=== PATIENT | female | born 1985 | race Caucasian/White ===

== ENCOUNTER 2018-03-24 16:29 | Emergency (ER) | payer MEDICAID, SELFPAY ==
[2018-03-24 16:30] VITALS: BP 106/75; PULSE 128; RESP 20; TEMP 36.3; O2SAT 98; BMI 23.4
--- NOTE | 2018-03-24 16:43 | ED.DCSUM_ITS ---
- ER Visit Summary Date of Service: 03/24/18 Chief Complaint: Left lower dental pain History of Present Illness: The patient is a 32 F who presents with left lower dental pain that started yesterday. She states her tooth chipped. She denies fever, chills night sweats. She denies any antibiotic allergies. She denies difficulty opening and closing her mouth. She denies change in voice or difficulty swallowing. She has no history rheumatic fever, murmur, SBE, IV drug use or being immune suppressed. She denies any facial swelling or pain. She denies any redness to her skin. Physical Examination: Vital signs are remarkable for heart rate of 128. She is afebrile. Head is atraumatic normal cephalic. Pupils equal round reactive. Extra muscles are intact. Sclerae anicteric. Conjunctive is not injected. Is patent. Posterior pharynx without erythema x-ray. Uvula midline. Patient has numerous dental caries. The first, second third left lower molars have caries involving both the enamel and dentin. There is no swelling of the jaw. There is no submandibular or superior anterior cervical lymphadenopathy. Trachea is midline. There is no evidence of Adolfo's angina. There is no stridor with agitation neck. Insert cardiopulmonary exam Test Results: None are indicated Emergency Department Course and Treatment: Patient received first dose of penicillin and Naprosyn in the department and was discharged with prescription for both. She was instructed to follow-up with her dentist Dr. Jimenez. Treatment Plan: Prescription for pen VK and Naprosyn and outpatient follow-up with her dentist Disposition: Discharged home Impression: 1. Dental pain secondary to numerous cavities involving the first, second and third left lower molars with involvement of the enamel and dentin. This note was generated with [employer] dictation software. It may contain incorrect words, spelling, and punctuation that were not noted in review of the chart prior to signing ED Disposition - Plan for ED Patient: Disposition: Home or Assisted Living Chief Complaint: Dental Instructions: ED Tooth Pain, ED Cavity Dental Prescriptions: Naproxen [Naprosyn] 500 mg PO BID #14 tab Penicillin V Potassium 500 mg PO 4X/DAY #40 tab Referrals: Care Physician,No Primary [Primary Care Provider] - Dentist,Your [STAFF PHYSICIAN] - 5-7 Days
[2018-03-24] MEDS: Naproxen 250 MG Tablet 500 MG PO (16:49)
[2018-03-24] MEDS: Penicillin Vk 250 MG Tablet 500 MG PO (16:50)
== END 2018-03-24 16:53 | disposition home or self-care (01) ==
LOC: ED 16:49
PROVIDERS: Emergency Provider Emergency Medicine
DX: K02.9 Dental caries, unspecified (principal); K08.89 Other specified disorders of teeth and supporting structures; K05.10 Chronic gingivitis, plaque induced
CPT/HCPCS: 99281

== ENCOUNTER 2018-06-30 12:41 | Emergency (ER) | payer MEDICAID, SELFPAY ==
[2018-06-30 12:42] VITALS: BP 134/64; PULSE 121; RESP 16; TEMP 37.1; O2SAT 98; BMI 22.6
--- NOTE | 2018-06-30 13:24 | ED.DCSUM_ITS ---
- ER Visit Summary Date of Service: 06/30/18 Chief Complaint: [] Left upper dental pain for days History of Present Illness: The patient is a 32 F [] that complaint for days no fever no cough she has a history of dental cavities she is scheduled to see a dentist soon no other complaints no mouth swelling or trouble swallowing or breathing Physical Examination: [] She is in no distress points to the basically the third molar left upper complaining of pain here there appears to be cavity here also second molar there appears to be a filling that may have fallen out she has no gingival gumline swelling the floor the mouth is clear her speech is easy to understand no stridor or drooling the neck is supple the rest of exams unremarkable Test Results: [] Emergency Department Course and Treatment: [] She will be started on Pen-Vee K Motrin which she is able to take and to follow-up with her family doctors and dentists for further management Treatment Plan: [] Disposition: [] Home stable Impression: [] Dental cavity causing pain This note was generated with [employer] dictation software. It may contain incorrect words, spelling, and punctuation that were not noted in review of the chart prior to signing ED Disposition - Plan for ED Patient: Chief Complaint: Dental Referrals: Care Physician,No Primary [Primary Care Provider] -
--- NOTE | 2018-06-30 13:24 | ED.DEP ---
ED Disposition - Plan for ED Patient: Chief Complaint: Dental Instructions: ED Cavity Dental Prescriptions: Ibuprofen [Motrin] 600 mg PO TID PRN #20 tab Penicillin V Potassium 500 mg PO 4X/DAY #40 tab Referrals: Care Physician,No Primary [Primary Care Provider] -
== END 2018-06-30 13:45 | disposition home or self-care (01) ==
PROVIDERS: Emergency Provider Emergency Medicine
DX: K02.9 Dental caries, unspecified (principal); K08.89 Other specified disorders of teeth and supporting structures
CPT/HCPCS: 99281

== ENCOUNTER 2018-12-19 22:13 | Inpatient (IN) | payer MEDICAID, SELFPAY ==
[2018-12-19 22:14] VITALS: BP 106/68; PULSE 110; RESP 16; TEMP 36.7; O2SAT 99; BMI 15.3
[2018-12-19] MEDS: 0.9% Normal Saline 1,000 ML 1000 ML IV (22:55)
[2018-12-19 22:56] LABS: Red Blood Cells-Urine 0 SEEN /hpf (0-5)
[2018-12-19 23:01] LABS: Absolute Lymphocyte Count 1.56 X10^3/ul (0.83-4.51); Absolute Neutrophil Count 2.5 X10^3/uL (2.0-7.7); Basophil# 0.12 X10^3/uL; Basophil% 2.3 % (0-1); Eosinophil# 0.06 X10^3/uL; Eosinophils% 1.2 % (0-5); Hematocrit 46.3 % (37-47); Hemoglobin 14.9 g/dl (12.0-15.0); Lymphocyte # 1.56 X10^3/ul (4.0); Lymphocyte % 30.4 % (19-41); Mean Corp Hgb Conc 32.2 g/gl (32-36); Mean Corpuscular Hgb 28.1 pg (27.0-32.0); Mean Corpuscular Volume 87.2 fL (81-99); Mean Platelet Vol. 10.1 fl (6.2-12.0); Monocyte# 0.87 X10^3/uL; Neutrophil # 2.51 X10^3/uL (2.7-7.7); Neutrophil % 48.9 % (47-70); Platelet Count 220 K/mm3 (150-450); RBC Distribution Width CV 14.6 % (11.6-14.6); RBC Distribution Width SD 46.4 fl (35.1-43.9); Red Blood Count 5.31 M/mm3 (4.2-5.4); White Blood Count 5.1 K/mm3 (4.4-11.0)
[2018-12-19 23:03] LABS: Differential Indicated SCAN CRITERIA MET; POSITIVE COUNT NO; POSITIVE DIFFERENTIAL NO; POSITIVE MORPHOLOGY YES
[2018-12-19 23:11] LABS: Color, Urine Amber (Yellow); Glucose, Dipstick Normal (Normal); Ketone-Dipstick 5 mg/dl (Negative); Leukocyte Esterase-Dipstick 100 /ul (Negative); Nitrite-Dipstick Positive (Negative); Occult Blood-Urine 250 /ul (Negative); Protein-Dipstick 30 mg/dl (Negative); Specific Gravity, Urine 1.025 (1.002-1.030); Urine Clarity Sl. Cloudy (Clear); Urine Urobilinogen 8 mg/dl (Normal)
[2018-12-19 23:11] LABS: International Normalized Ratio 1.2; Prothrombin Time (Protime)PT. 14.7 SECONDS (11.7-14.9)
[2018-12-19 23:17] LABS: Urine Bilirubin Dipstick 6 mg/dL (Negative)
[2018-12-19 23:18] LABS: Anisocytosis RARE; Platelet Estimate ADEQUATE (ADEQ)
[2018-12-19 23:18] LABS: Squamous Epithelial Cells - UA 0-5 SEEN /hpf (5-10); White Blood Cells 5-10 SEEN /hpf (0-5)
[2018-12-19 23:19] LABS: Bacteria RARE /hpf (None Seen); Mucous, Urine 2+ /hpf (<or=2+)
[2018-12-19 23:24] LABS: Pregnancy, Serum, hCG Quali. NEGATIVE Negative (0-9 Nonpreg)
[2018-12-19 23:45] LABS: AST(SGOT) 2535 U/L (15-37); Alanine Aminotransfer ALT/SGPT 2796 U/L (13-56); Albumin, Serum 3.2 g/dL (3.2-5.0); Alkaline Phosphatase 218 U/L (45-117); Anion Gap 9 (5-15); BUN 11 mg/dL (7-18); BUN/Creat Ratio 14.5 RATIO (10-20); Bilirubin, Direct 7.79 mg/dL (0.00-0.30); Calcium,Total 8.3 mg/dL (8.5-10.1); Chloride 103 mmol/L (98-107); Creatinine, Serum 0.76 mg/dL (0.55-1.02); EST Glomerular Filtration Rate 93 mL/min (>60); Est Glom Filt Rate - Afr Amer 113 mL/min (>60); Estimated Creatinine Clearance 71.62 ml/min; Globulin 3.8 g/dL (2.2-4.2); Glucose 77 mg/dL (74-106); Lipase 173 U/L (73-393); Potassium 3.7 mmol/L (3.5-5.1); Sodium Level 138 mmol/L (136-145)
[2018-12-20] VITALS (20 sets, daily range): BP systolic 95–111; BP diastolic 60–81; PULSE 69–99; RESP 12–21; TEMP 36.3–36.9; O2SAT 96–100; BMI 20.2
--- NOTE | 2018-12-20 01:25 | ED.VISSUMM ---
- ER Visit Summary Date of Service: 12/20/18 Chief Complaint: Jaundice History of Present Illness: The patient is a 33 F with no primary care physician. She reports that she has not felt well for the past 5 days. She has had a poor appetite and has been fatigued. She also complains of generalized weakness. She reports that she has jaundice that began today. She denies any abdominal pain. She has had nausea without vomiting. No diarrhea. Her last bout was 2 days ago. Typically she goes every other day. She denies any solomon colored stools. She does report that she had dysuria and dark urine for the past 2 days. She is on her menstrual period now. Review of systems: General: No fever, chills, cold sweats. Cardiovascular: No chest pain, palpitations. Respiratory: No cough, shortness of breath, dyspnea on exertion. Gastrointestinal: No abdominal pain, nausea, diarrhea, melena, or hematochezia. Neuro: No headache, numbness. Physical Examination: Vitals: Stable. Afebrile. General: Well-nourished and well-developed. Head: Normocephalic atraumatic. Scleral icterus. Neck: Supple, no lymphadenopathy. No JVD. Nontender. Cardiovascular: Regular rate and rhythm. No murmurs. Respiratory: No respiratory distress. Clear to auscultation bilaterally. Abdominal: Soft, nontender, nondistended, normal bowel sounds. No guarding, rebound, or peritoneal signs. Back: Nontender. Extremities: Nontender, no edema. Skin: Jaundiced. Neurologic: Alert and oriented ?3. Cranial nerves II through XII are intact. Normal strength and sensation. Psych: Normal affect. Test Results: CBC is remarkable for monocytes of 17 basophils of 2. Chem-7 is remarkable for a calcium of 8.3. LFTs show a total bili of 9.7 with a direct bili of 7.79. Alk phos is 218. ALT is 2796. AST is 2535. Lipase is normal. INR is 1.2. UA shows leukocytes, nitrites, blood, ketones, 5-10 white blood cells and rare bacteria. test is negative. Clinical Impression(s) from Imaging Studies Abdomen/Pelvis CT 12/20/18 22:41 IMPRESSION: 1. The gallbladder is contracted, nonspecific. Suggest follow-up gallbladder ultrasound, preferably fasting exam. 2. The liver appears normal and no biliary dilatation or pancreatic ductal dilatation identified. 3. Small free fluid within the posterior cul-de-sac. 4. Prominent constipation. Individualized dose optimization techniques were used for this CT. at 0202 Reported and signed by: Claude Rangel MD Electronically Signed: Claude Rangel, at 2:01 EST Tel , Service support , Emergency Department Course and Treatment: Patient was given a liter of normal saline. She refused pain or nausea medications. She was given Rocephin IV. She is resting comfortably. Treatment Plan: The patient was discussed with Dr. Lynch. She will be admitted to the hospital for further evaluation and treatment. Disposition: Admitted in stable condition. Impression: 1. Painless jaundice. This note was generated with [employer] dictation software. It may contain incorrect words, spelling, and punctuation that were not noted in review of the chart prior to signing ED Disposition - Plan for ED Patient: Chief Complaint: General Illness Referrals: Care Physician,No Primary [Primary Care Provider] -
--- NOTE | 2018-12-20 01:28 | ED.DCSUM_ITS ---
- ER Visit Summary Date of Service: 12/20/18 Chief Complaint: Jaundice History of Present Illness: The patient is a 33 F with no primary care physician. She reports that she has not felt well for the past 5 days. She has had a poor appetite and has been fatigued. She also complains of generalized weakness. She reports that she has jaundice that began today. She denies any abdominal pain. She has had nausea without vomiting. No diarrhea. Her last bout was 2 days ago. Typically she goes every other day. She denies any solomon colored stools. She does report that she had dysuria and dark urine for the past 2 days. She is on her menstrual period now. Review of systems: General: No fever, chills, cold sweats. Cardiovascular: No chest pain, palpitations. Respiratory: No cough, shortness of breath, dyspnea on exertion. Gastrointestinal: No abdominal pain, nausea, diarrhea, melena, or hematochezia. Neuro: No headache, numbness. Physical Examination: Vitals: Stable. Afebrile. General: Well-nourished and well-developed. Head: Normocephalic atraumatic. Scleral icterus. Neck: Supple, no lymphadenopathy. No JVD. Nontender. Cardiovascular: Regular rate and rhythm. No murmurs. Respiratory: No respiratory distress. Clear to auscultation bilaterally. Abdominal: Soft, nontender, nondistended, normal bowel sounds. No guarding, rebound, or peritoneal signs. Back: Nontender. Extremities: Nontender, no edema. Skin: Jaundiced. Neurologic: Alert and oriented ?3. Cranial nerves II through XII are intact. Normal strength and sensation. Psych: Normal affect. Test Results: CBC is remarkable for monocytes of 17 basophils of 2. Chem-7 is remarkable for a calcium of 8.3. LFTs show a total bili of 9.7 with a direct bili of 7.79. Alk phos is 218. ALT is 2796. AST is 2535. Lipase is normal. INR is 1.2. UA shows leukocytes, nitrites, blood, ketones, 5-10 white blood cells and rare bacteria. test is negative. Clinical Impression(s) from Imaging Studies Abdomen/Pelvis CT 12/20/18 22:41 IMPRESSION: 1. The gallbladder is contracted, nonspecific. Suggest follow-up gallbladder ultrasound, preferably fasting exam. 2. The liver appears normal and no biliary dilatation or pancreatic ductal dilatation identified. 3. Small free fluid within the posterior cul-de-sac. 4. Prominent constipation. Individualized dose optimization techniques were used for this CT. at 0202 Reported and signed by: Claude Rangel MD Electronically Signed: Claude Rangel, at 2:01 EST Tel , Service support , Emergency Department Course and Treatment: Patient was given a liter of normal saline. She refused pain or nausea medications. She was given Rocephin IV. She is resting comfortably. Treatment Plan: The patient was discussed with Dr. Lynch. She will be admitted to the hospital for further evaluation and treatment. Disposition: Admitted in stable condition. Impression: 1. Painless jaundice. This note was generated with [employer] dictation software. It may contain incorrect words, spelling, and punctuation that were not noted in review of the chart prior to signing ED Disposition - Plan for ED Patient: Chief Complaint: General Illness Referrals: Care Physician,No Primary [Primary Care Provider] -
[2018-12-20] MEDS: Ceftriaxone 1 GM/50 ML BAG IV (02:12)
--- NOTE | 2018-12-20 03:01 | PCM.HP.STD ---
Problem List (1) Acute liver injury Status: Acute (2) History of fentanyl use Status: Chronic (3) History of alcohol use Status: Chronic History of Present Illness Date of Admission: 12/20/18 Chief Complaint: Platelets jaundice The patient is a 33 year old F with no significant medical history except alcohol use and snorting fentanyl about 2 years ago came to ER for not feeling well since December 09. She denies fever or chills but she has been sleeping more, lethargy as per the patient and her mother near the bedside. She also feels nauseated, loss of appetite but denies vomiting and diarrhea. Her last bowel movement was about 2 days ago and is normally every other day. She also has dysuria and turbid urine for last 2 days. She denies as she is on menstrual period. Denies abdominal pain. [] She denies any recent or past history of liver disease. In the ER, CT abdomen shows gallbladder contracted with liver appearing normal and no biliary or pancreatic ductal dilatation. Basic lab work in ED shows total bili of 9.7, direct bilirubin 7.79, ALT 2796, AST 2535, alkaline phosphatase 218, albumin 3.2, INR normal 1.2. UA is positive of WBC 5-10 cells, LE 100, nitrite positive, bacteria rare. The patient denies recent Tylenol or drug overdose or salicylate but in her home medication listed Tylenol. She also said she takes gabapentin for hand paresthesia although dose unclear. Past Medical History Past Medical History (Chronic Problems): Chronic Problems History of fentanyl use (Chronic) History of alcohol use (Chronic) Allergies No Known Allergies Allergy (Verified 12/19/18 22:18) Home Medications: Ambulatory Orders Medication Instructions Recorded Acetaminophen [Tylenol] 325 mg PO PRN 12/19/18 Smoking Status: Current every day smoker - *Family History Paternal History Items: - - History of liver cancer 1 diabetes mellitus Review of Systems Constitutional: Reports: Anorexia, Weakness, Fatigue. Denies: Chills, Fever, Weight Change Eyes: Reports: - - Icterus present HEENT: Denies: Head Aches, Sinus Congestion, Sinus Drainage Cardiovascular: Denies: Chest Pain, Palpitations Respiratory: Denies: Cough, Shortness of breath at rest, Sputum production Gastrointestinal: Reports: Constipation. Denies: Abdominal Pain, Nausea, Vomiting Genitourinary: Denies: Dysuria Musculoskeletal: Denies: Joint Pain, Joint Tenderness Skin: Denies: Rash, Wounds Neurological: Denies: Numbness, Tingling, Focal weakness Psychiatric: Reports: Anxiety. Denies: Depression, Homicidal Ideations, Suicidal Ideations Hematologic/ Lymphatic: Denies: Easy Bruising, Easy Bleeding VTE Information - Inpt Only VTE Present on Admission: No VTE Mechan Device Prophylaxis: SCD's VTE Pharm Prophylaxis ordered?: No Patient Problems: Active and Suspected Problems Acute liver injury (Acute) - Physical Exam General: Alert, Oriented x3, Cooperative, - - More sleepiness at home HEENT: Atraumatic, PERRLA, EOMI, Normocephalic, - - Deep icterus present Oral: Dry Mucosa Neck: Supple, No JVD, Negative Carotid Bruits Lungs: Clear to auscultation, Normal air movement, No rhonchi, No wheeze Cardiovascular: Regular rate, Regular Rhythm, Normal S1, Normal S2, No murmurs Abdomen: Bowel Sounds Present, Soft, Non-Distended, No Hepato-splenomegaly - Liver not enlarged. Liver dullness starts at 6th intercostal space anteriorly., Tender - Tenderness present on deep palpation on right upper quadrant subcostal margin Extremities: No edema, Capillary Refill Less than 3 Seconds Skin: No rashes, No breakdown Musculoskeletal: No Tenderness to Palpation of Joints or Extremities Neurological: Cranial nerves II-XII grossly intact, Deep Tendon Reflexes 2+/4 and Symmetrical, Neuro grossly intact, Motor Exam 5/5 strength throughout, - - No asterixis Psych/Mental Status: Normal Affect, Appropriate Vital Signs Temp Pulse Resp BP Pulse Ox 98.0 F 97 16 96/67 99 12/19/18 22:14 12/20/18 02:21 12/20/18 02:21 12/20/18 02:21 12/20/18 02:21 Oxygen Delivery Method Room Air Weight: 95 lb Body Mass Index (BMI) 15.3 Laboratory Tests Past 24 Hrs 12/19/18 12/19/18 12/19/18 22:45 22:45 22:45 WBC 5.1 RBC 5.31 Hgb 14.9 Hct 46.3 MCV 87.2 MCH 28.1 MCHC 32.2 RDW 14.6 RDW Differential 46.4 H Plt Count 220 MPV 10.1 Immature Gran % (Auto) 0.200 Neut % (Auto) 48.9 Lymph % (Auto) 30.4 [place] % (Auto) 17.0 H Eos % (Auto) 1.2 Baso % (Auto) 2.3 H Absolute Neuts (auto) 2.5 Absolute Lymphs (auto) 1.56 Total Counted Not Reportable Diff Path Review May foll Platelet Estimate ADEQUATE Anisocytosis RARE PT 14.7 INR 1.2 Sodium 138 Potassium 3.7 Chloride 103 Carbon Dioxide 26.0 Anion Gap 9 BUN 11 Creatinine 0.76 Estim Creat Clear Calc 71.62 Est GFR (MDRD) Af Amer 113 Est GFR (MDRD) Non-Af 93 BUN/Creatinine Ratio 14.5 Glucose 77 Calcium 8.3 L Total Bilirubin 9.70 H Direct Bilirubin 7.79 H AST 2535 H ALT 2796 H Alkaline Phosphatase 218 H Total Protein 7.0 Albumin 3.2 Globulin 3.8 Lipase 173 Serum , Qual Urine Color Urine Clarity Urine pH Ur Specific [place] Urine Protein Urine Glucose (UA) Urine Ketones Urine Occult Blood Urine Nitrite Urine Bilirubin Urine Urobilinogen Ur Leukocyte Esterase Urine RBC Urine WBC Ur Squamous Epith Cells Urine Bacteria Urine Mucus Hepatitis A IgM Ab Hep Bs Antigen Hep B Core IgM Ab Hepatitis C Ab (EIA) 12/19/18 12/19/18 12/20/18 22:45 22:55 01:25 WBC RBC Hgb Hct MCV MCH MCHC RDW RDW Differential Plt Count MPV Immature Gran % (Auto) Neut % (Auto) Lymph % (Auto) [place] % (Auto) Eos % (Auto) Baso % (Auto) Absolute Neuts (auto) Absolute Lymphs (auto) Total Counted Diff Path Review Platelet Estimate Anisocytosis PT INR Sodium Potassium Chloride Carbon Dioxide Anion Gap BUN Creatinine Estim Creat Clear Calc Est GFR (MDRD) Af Amer Est GFR (MDRD) Non-Af BUN/Creatinine Ratio Glucose Calcium Total Bilirubin Direct Bilirubin AST ALT Alkaline Phosphatase Total Protein Albumin Globulin Lipase Serum , Qual NEGATIVE Urine Color Sissy Urine Clarity Sl. Cloudy Urine pH 5.0 Ur Specific [place] 1.025 Urine Protein 30 H Urine Glucose (UA) Normal Urine Ketones 5 H Urine Occult Blood 250 H Urine Nitrite Positive H Urine Bilirubin 6 H Urine Urobilinogen 8 H Ur Leukocyte Esterase 100 H Urine RBC 0 SEEN Urine WBC 5-10 SEEN Ur Squamous Epith Cells 0-5 SEEN Urine Bacteria RARE Urine Mucus 2+ Hepatitis A IgM Ab Pending Hep Bs Antigen Pending Hep B Core IgM Ab Pending Hepatitis C Ab (EIA) Pending Assessment/Plan All Active Problems Acute liver injury (Acute) The patient is a 33 year old F with no significant medical history except alcohol use and snorting fentanyl about 2 years ago came to ER for not feeling well since December 09. She denies fever or chills but she has been sleeping more, lethargy as per the patient and her mother near the bedside. She also feels nauseated, loss of appetite but denies vomiting and diarrhea. Her last bowel movement was about 2 days ago and is normally every other day. She also has dysuria and turbid urine for last 2 days. She denies as she is on menstrual period. Denies abdominal pain. [] She denies any recent or past history of liver disease. In the ER, CT abdomen shows gallbladder contracted with liver appearing normal and no biliary or pancreatic ductal dilatation. Basic lab work in ED shows total bili of 9.7, direct bilirubin 7.79, ALT 2796, AST 2535, alkaline phosphatase 218, albumin 3.2, INR normal 1.2. UA is positive of WBC 5-10 cells, LE 100, nitrite positive, bacteria rare. The patient denies recent Tylenol or drug overdose or salicylate but in her home medication listed Tylenol. She also said she takes gabapentin for hand paresthesia although dose unclear. 1. Acute liver injury, etiology unclear suspect Tylenol/drug overdose: Patient is being admitted in ICU for N-acetylcysteine drip. Discussed with the pharmacist, and started drip as per Tylenol overdose. Monitor CMP, CBC tomorrow a.m. and daily. Right upper quadrant sonogram tomorrow a.m. in fasting state. Avoid hepatotoxic medications. Serum Tylenol and salicylate ordered. U tox, serum alcohol and GGT ordered. Hepatitis panel has already been ordered. HSV and Monospot test ordered. As mentioned above, CT abdomen does not show surgical/obstructive jaundice but follow-up right upper quadrant sonogram. 2. Increased sleepiness suggestive of possible hepatic encephalopathy without coma: Serum ammonia ordered. Lactulose 20 g 3 times daily as the patient might have hepatic encephalopathy. 3. UTI: On IV Rocephin 1 g daily. Urine culture ordered. DVT prophylaxis: Bilateral SCDs Laboratory Results 12/19/18 22:45: WBC 5.1, RBC 5.31, Hgb 14.9, Hct 46.3, MCV 87.2, MCH 28.1, MCHC 32.2, RDW 14.6, RDW Differential 46.4 H, Plt Count 220, MPV 10.1, Immature Gran % (Auto) 0.200, Neut % (Auto) 48.9, Lymph % (Auto) 30.4, [place] % (Auto) 17.0 H, Eos % (Auto) 1.2, Baso % (Auto) 2.3 H, Absolute Neuts (auto) 2.5, Absolute Lymphs (auto) 1.56, Total Counted Not Reportable, Diff Path Review March, Platelet Estimate ADEQUATE, Anisocytosis RARE 12/19/18 22:45: PT 14.7, INR 1.2 12/19/18 22:45: Sodium 138, Potassium 3.7, Chloride 103, Carbon Dioxide 26.0, Anion Gap 9, BUN 11, Creatinine 0.76, Estim Creat Clear Calc 71.62, Est GFR (MDRD) Af Amer 113, Est GFR (MDRD) Non-Af 93, BUN/Creatinine Ratio 14.5, Glucose 77, Calcium 8.3 L, Total Bilirubin 9.70 H, Direct Bilirubin 7.79 H, AST 2535 H, ALT 2796 H, Alkaline Phosphatase 218 H, Total Protein 7.0, Albumin 3.2, Globulin 3.8, Lipase 173 12/19/18 22:45: Serum , Qual NEGATIVE 12/19/18 22:55: Urine Color Sissy, Urine Clarity Sl. Cloudy, Urine pH 5.0, Ur Specific [place] 1.025, Urine Protein 30 H, Urine Glucose (UA) Normal, Urine Ketones 5 H, Urine Occult Blood 250 H, Urine Nitrite Positive H, Urine Bilirubin 6 H, Urine Urobilinogen 8 H, Ur Leukocyte Esterase 100 H, Urine RBC 0 SEEN, Urine WBC 5-10 SEEN, Ur Squamous Epith Cells 0-5 SEEN, Urine Bacteria RARE, Urine Mucus 2+ 12/20/18 01:25: Hepatitis A IgM Ab Pending, Hep Bs Antigen Pending, Hep B Core IgM Ab Pending, Hepatitis C Ab (EIA) Pending Clinical Impression(s) from Imaging Studies Abdomen/Pelvis CT 12/20/18 22:41 IMPRESSION: 1. The gallbladder is contracted, nonspecific. Suggest follow-up gallbladder ultrasound, preferably fasting exam. 2. The liver appears normal and no biliary dilatation or pancreatic ductal dilatation identified. 3. Small free fluid within the posterior cul-de-sac. 4. Prominent constipation. Individualized dose optimization techniques were used for this CT. Code Visit Inpatient E&M: 54213 Init Hosp L3
[2018-12-20 04:34] LABS: Absolute Lymphocyte Count 1.59 X10^3/ul (0.83-4.51); Absolute Neutrophil Count 2.4 X10^3/uL (2.0-7.7); Basophil# 0.08 X10^3/uL; Basophil% 1.5 % (0-1); Eosinophil# 0.06 X10^3/uL; Eosinophils% 1.1 % (0-5); Hematocrit 38.7 % (37-47); Hemoglobin 12.2 g/dl (12.0-15.0); Lymphocyte # 1.59 X10^3/ul (4.0); Lymphocyte % 29.7 % (19-41); Mean Corp Hgb Conc 31.5 g/gl (32-36); Mean Corpuscular Hgb 27.7 pg (27.0-32.0); Mean Corpuscular Volume 87.8 fL (81-99); Mean Platelet Vol. 9.7 fl (6.2-12.0); Monocyte# 1.17 X10^3/uL; Monocyte% 21.9 % (0-10); Neutrophil # 2.44 X10^3/uL (2.7-7.7); Neutrophil % 45.6 % (47-70); Platelet Count 201 K/mm3 (150-450); RBC Distribution Width CV 14.6 % (11.6-14.6); RBC Distribution Width SD 47.3 fl (35.1-43.9); Red Blood Count 4.41 M/mm3 (4.2-5.4); White Blood Count 5.4 K/mm3 (4.4-11.0)
[2018-12-20] MEDS: 0.9% Normal Saline 1,000 ML 150 ML IV ×3 (04:36→23:05)
[2018-12-20 04:38] LABS: GGTP 134 U/L (5-55)
[2018-12-20 04:41] LABS: Internal QC Validated? YES +Cl - CLEAR BKGD; Monotest Negative (Negative)
[2018-12-20 04:55] LABS: ALB/GLOB Ratio 0.9 RATIO (0.9-2.4); AST(SGOT) 2095 U/L (15-37); Alanine Aminotransfer ALT/SGPT 2380 U/L (13-56); Albumin, Serum 2.8 g/dL (3.2-5.0); Alkaline Phosphatase 182 U/L (45-117); Anion Gap 8 (5-15); BUN 8 mg/dL (7-18); BUN/Creat Ratio 10.6 RATIO (10-20); Calcium,Total 7.9 mg/dL (8.5-10.1); Chloride 105 mmol/L (98-107); Creatinine, Serum 0.76 mg/dL (0.55-1.02); EST Glomerular Filtration Rate 94 mL/min (>60); Est Glom Filt Rate - Afr Amer 113 mL/min (>60); Estimated Creatinine Clearance 77.62 ml/min; Globulin 3.1 g/dL (2.2-4.2); Glucose 80 mg/dL (74-106); Potassium 3.7 mmol/L (3.5-5.1); Protein, Total 5.9 g/dL (6.4-8.2); Sodium Level 140 mmol/L (136-145)
[2018-12-20] MEDS: Ondansetron 4 MG/2 ML Vial IV (05:06)
[2018-12-20] MEDS: 0.9% NaCl Peripheral Flush Adult/Peds IV (05:06)
[2018-12-20 05:13] LABS: Salicylate < 1.7 mg/dL (2.8-20.0)
[2018-12-20 05:28] LABS: Differential Indicated SCAN CRITERIA MET; POSITIVE COUNT NO; POSITIVE DIFFERENTIAL NO; POSITIVE MORPHOLOGY YES
[2018-12-20 05:35] LABS: Differential Comment SCANNED
--- NOTE | 2018-12-20 05:55 | US_ITS ---
STUDY: ABDOMINAL ULTRASOUND - RIGHT UPPER QUADRANT REASON FOR VISIT: Female, 33 years old. Elevated liver function tests. Jaundice. TECHNIQUE: Ultrasound evaluation of the right upper quadrant was performed with real-time and static mueller-scale imaging. TECHNICAL QUALITY: Limited. Examination limited due to obesity. COMPARISON: Comparison is made with prior CT scan the abdomen and pelvis dated December 20, 2018 at 12:40 AM. FINDINGS: Liver: The liver measures 12.8 cm. There is normal echogenicity of the liver. The bile ducts are within normal limits. There is hepatic color flow. The direction of portal flow is hepatopetal. There is no demonstrated mass lesion. Gallbladder: There is a contracted gallbladder. The gallbladder wall measures 3.4 mm. There is a negative sonographic Henry's sign. There is trace pericholecystic fluid. There are no gallstones. Common Bile Duct (C.B.D.): The common bile duct measures 1.7 mm. Pancreas: Normal size of the head, body and tail of the pancreas. There is normal echogenicity of the pancreas. There is no demonstrated pancreatic mass or cyst. Right Kidney: Normal size of the right kidney. The right kidney measures 10.8 cm x 5.9 cm x 5.1 cm. Normal renal cortex. The right cortex measures 1.9 cm. There is no demonstrated renal mass or cyst. There is no right hydronephrosis. US/Abdomen Limited IMPRESSION: Contracted slightly thickened gallbladder. Trace amount of pericholecystic fluid. Electronically Signed: Forest Gallegos MD at 10:36 EST , Service support ,
[2018-12-20 06:04] LABS: Amphetamine Urine VISTA NEGATIVE (<1000 ng/mL); Barbiturate Urine VISTA NEGATIVE (< 200 ng/mL); Benzodiazepine Urine VISTA NEGATIVE (< 200 ng/mL); Cocaine Urine VISTA NEGATIVE (< 300 ng/mL); Ecstacy Urine VISTA NEGATIVE (< 500 ng/mL); Methadone Urine VISTA NEGATIVE (< 300 ng/mL); PCP Urine VISTA NEGATIVE (< 25 ng/mL); THC Urine VISTA POSITIVE (< 50 ng/mL); Vista UDS pH Range 6
[2018-12-20 06:33] LABS: Acetaminophen (Tylenol) Level < 2.0 ug/mL (10.0-30.0)
--- NOTE | 2018-12-20 07:04 | CON.PCM_ITS ---
Problem List (1) Acute liver injury Status: Acute (2) History of fentanyl use Status: Chronic (3) History of alcohol use Status: Chronic Reason for Consult Date of Consultation: 12/20/18 Reason for Consultation: Acute liver injury History of Present Illness: The patient is a 33 year old F, with past medical history listed below, who presented to [facility] on 12/20/2018 secondary to jaundice. Patient reportedly had not felt well over the last 5 days with poor appetite and fatigue. Patient also reported generalized weakness and had noted on the day of presentation the development of jaundice. This did not have any associated abdominal pain, but patient did report some nausea, without vomiting or diarrhea. Patient reports her stool has been hard, but otherwise appeared normal. Patient has noted some dark urine over the last couple days. Patient is currently on her menstrual period. Patient does report that she took 400 mg of gabapentin the day prior to presentation. Patient did report using Tylenol as needed for pain, but denied any excessive use or intentional overdose. Patient denies any recent undercooked seafood. In the emergency room, patient was hemodynamically stable on room air. CBC showed monocytes of 17 and a total bilirubin of 9.7, primarily direct. Alk phos, GGT, ALT and AST were all elevated. CT of the abdomen showed a contracted gallbladder without cirrhosis or biliary/pancreatic ductal dilation. Patient was then admitted to the intensive care unit for further monitoring. Patient was started on N acetylcysteine by drip. Patient has had some nausea that was treated with Zofran. This morning, patient feels subjectively improved compared to previous. Patient has remained hemodynamically stable on room air. Patient does report a dull achy sensation in the right upper quadrant that is not worse with deep inhalation. Patient does report it has been a couple days since her last bowel movement. This is not atypical for her. Patient denied any recent dysuria, but does report she is currently menstruating. Review of systems otherwise negative x10 systems. Past Medical History Past Medical History (Chronic Problems): Chronic Problems History of fentanyl use (Chronic) History of alcohol use (Chronic) Allergies No Known Allergies Allergy (Verified 12/19/18 22:18) Home Medications: Ambulatory Orders Medication Instructions Recorded Acetaminophen [Tylenol] 325 mg PO PRN 12/19/18 Smoking Status: Former smoker - *Family History Paternal History Items: - - History of liver cancer 1 diabetes mellitus Review of Systems Comment: See HPI, otherwise negative x10 systems. Patient Problems: Active and Suspected Problems Acute liver injury (Acute) Objective: CT of the abdomen showed a questionable gallbladder and constipation. - Physical Exam General: Alert, Oriented x3, Cooperative, No apparent distress, - - Jaundice appreciated. Appears stated age. Speaking in full sentences. HEENT: Atraumatic, PERRLA, EOMI, Normocephalic, - - Icterus noted. Oral: Moist Mucosa, No Gingival or Mucosal Lesions/ Ulcerations, - - Lip ring is clean, dry and intact. Neck: Supple, No JVD, No Nodes, Trachea Midline Lungs: Clear to auscultation, Normal air movement, No rhonchi, No wheeze, No rales Cardiovascular: Regular rate, Regular Rhythm, Normal S1, Normal S2, No murmurs, No rub noted, No Gallop Abdomen: Bowel Sounds Present, Soft, Non-Distended, Tender - Described as achy sensation and localized to the right upper quadrant Extremities: No clubbing, No cyanosis, No edema, Capillary Refill Less than 3 Seconds Skin: No rashes, No breakdown Musculoskeletal: No Tenderness to Palpation of Joints or Extremities Lymphatic: No Cervical, Supraclavicular, or Inguinal Adenopathy Neurological: Cranial nerves II-XII grossly intact, Neuro grossly intact, Motor Exam 5/5 strength throughout Psych/Mental Status: Alert and oriented to time, place, person, mood and affect Vital Signs Temp Pulse Resp BP Pulse Ox 36.3 C L 95 20 H 109/73 96 12/20/18 03:46 12/20/18 06:00 12/20/18 06:00 12/20/18 06:00 12/20/18 06:00 Oxygen Delivery Method Room Air Weight: 46.7 kg Body Mass Index (BMI) 20.2 Intake and Output for Last 24 Hours 12/18/18 12/19/18 12/20/18 23:59 23:59 23:59 Intake Total 599.5 / 599.5 Output Total 550 / 550 Balance 49.5 / 49.5 Laboratory Tests Past 24 Hrs 12/19/18 12/19/18 12/19/18 22:45 22:45 22:45 WBC 5.1 RBC 5.31 Hgb 14.9 Hct 46.3 MCV 87.2 MCH 28.1 MCHC 32.2 RDW 14.6 RDW Differential 46.4 H Plt Count 220 MPV 10.1 Immature Gran % (Auto) 0.200 Neut % (Auto) 48.9 Lymph % (Auto) 30.4 [place] % (Auto) 17.0 H Eos % (Auto) 1.2 Baso % (Auto) 2.3 H Absolute Neuts (auto) 2.5 Absolute Lymphs (auto) 1.56 Total Counted Not Reportable Differential Comment Diff Path Review May foll Platelet Estimate ADEQUATE Anisocytosis RARE PT 14.7 INR 1.2 Sodium 138 Potassium 3.7 Chloride 103 Carbon Dioxide 26.0 Anion Gap 9 BUN 11 Creatinine 0.76 Estim Creat Clear Calc 71.62 Est GFR (MDRD) Af Amer 113 Est GFR (MDRD) Non-Af 93 BUN/Creatinine Ratio 14.5 Glucose 77 Calcium 8.3 L Total Bilirubin 9.70 H Direct Bilirubin 7.79 H GGT AST 2535 H ALT 2796 H Alkaline Phosphatase 218 H Ammonia Total Protein 7.0 Albumin 3.2 Globulin 3.8 Albumin/Globulin Ratio Lipase 173 Serum , Qual Urine Color Urine Clarity Urine pH Ur Specific [place] Urine Protein Urine Glucose (UA) Urine Ketones Urine Occult Blood Urine Nitrite Urine Bilirubin Urine Urobilinogen Ur Leukocyte Esterase Urine RBC Urine WBC Ur Squamous Epith Cells Urine Bacteria Urine Mucus Salicylates Urine Opiates Screen Urine Methadone Screen Acetaminophen Ur Barbiturates Screen Ur Phencyclidine Scrn Ur Amphetamines Screen U Methamphetamin-MDMA U Benzodiazepines Scrn Urine Cocaine Screen U Cannabinoids Screen Ur Drug Screen Comment Ethyl Alcohol [place] Screen DIONI-1 Antibody SS-A/Ro IgG Antibody SS-B/La IgG Antibody Sm (Amado) Antibody SYRUP [employer]OOK Antibody Scl-70 Scleroderma Ab Double Strand DNA Ab Centromere B Antibody Anti-Mitochondrial Ab Anti-Smooth Muscle Ab Hepatitis A IgM Ab Hep Bs Antigen Hep B Core IgM Ab Hepatitis C Ab (EIA) HSV I DNA PCR HSV II DNA PCR Monoscreen 12/19/18 12/19/18 12/20/18 22:45 22:55 01:25 WBC RBC Hgb Hct MCV MCH MCHC RDW RDW Differential Plt Count MPV Immature Gran % (Auto) Neut % (Auto) Lymph % (Auto) [place] % (Auto) Eos % (Auto) Baso % (Auto) Absolute Neuts (auto) Absolute Lymphs (auto) Total Counted Differential Comment Diff Path Review Platelet Estimate Anisocytosis PT INR Sodium Potassium Chloride Carbon Dioxide Anion Gap BUN Creatinine Estim Creat Clear Calc Est GFR (MDRD) Af Amer Est GFR (MDRD) Non-Af BUN/Creatinine Ratio Glucose Calcium Total Bilirubin Direct Bilirubin GGT AST ALT Alkaline Phosphatase Ammonia Total Protein Albumin Globulin Albumin/Globulin Ratio Lipase Serum , Qual NEGATIVE Urine Color Sissy Urine Clarity Sl. Cloudy Urine pH 5.0 Ur Specific [place] 1.025 Urine Protein 30 H Urine Glucose (UA) Normal Urine Ketones 5 H Urine Occult Blood 250 H Urine Nitrite Positive H Urine Bilirubin 6 H Urine Urobilinogen 8 H Ur Leukocyte Esterase 100 H Urine RBC 0 SEEN Urine WBC 5-10 SEEN Ur Squamous Epith Cells 0-5 SEEN Urine Bacteria RARE Urine Mucus 2+ Salicylates Urine Opiates Screen Urine Methadone Screen Acetaminophen Ur Barbiturates Screen Ur Phencyclidine Scrn Ur Amphetamines Screen U Methamphetamin-MDMA U Benzodiazepines Scrn Urine Cocaine Screen U Cannabinoids Screen Ur Drug Screen Comment Ethyl Alcohol [place] Screen DIONI-1 Antibody SS-A/Ro IgG Antibody SS-B/La IgG Antibody Sm (Amado) Antibody SYRUP [employer] Antibody Scl-70 Scleroderma Ab Double Strand DNA Ab Centromere B Antibody Anti-Mitochondrial Ab Anti-Smooth Muscle Ab Hepatitis A IgM Ab Pending Hep Bs Antigen Pending Hep B Core IgM Ab Pending Hepatitis C Ab (EIA) Pending HSV I DNA PCR HSV II DNA PCR Monoscreen 12/20/18 12/20/18 12/20/18 03:45 03:45 03:45 WBC RBC Hgb Hct MCV MCH MCHC RDW RDW Differential Plt Count MPV Immature Gran % (Auto) Neut % (Auto) Lymph % (Auto) [place] % (Auto) Eos % (Auto) Baso % (Auto) Absolute Neuts (auto) Absolute Lymphs (auto) Total Counted Differential Comment Diff Path Review Platelet Estimate Anisocytosis PT INR Sodium Potassium Chloride Carbon Dioxide Anion Gap BUN Creatinine Estim Creat Clear Calc Est GFR (MDRD) Af Amer Est GFR (MDRD) Non-Af BUN/Creatinine Ratio Glucose Calcium Total Bilirubin Direct Bilirubin GGT 134 H AST ALT Alkaline Phosphatase Ammonia Total Protein Albumin Globulin Albumin/Globulin Ratio Lipase Serum , Qual Urine Color Urine Clarity Urine pH Ur Specific [place] Urine Protein Urine Glucose (UA) Urine Ketones Urine Occult Blood Urine Nitrite Urine Bilirubin Urine Urobilinogen Ur Leukocyte Esterase Urine RBC Urine WBC Ur Squamous Epith Cells Urine Bacteria Urine Mucus Salicylates Urine Opiates Screen Urine Methadone Screen Acetaminophen < 2.0 L Ur Barbiturates Screen Ur Phencyclidine Scrn Ur Amphetamines Screen U Methamphetamin-MDMA U Benzodiazepines Scrn Urine Cocaine Screen U Cannabinoids Screen Ur Drug Screen Comment Ethyl Alcohol 4.0 [place] Screen DIONI-1 Antibody SS-A/Ro IgG Antibody SS-B/La IgG Antibody Sm (Amado) Antibody SYRUP [employer] Antibody Scl-70 Scleroderma Ab Double Strand DNA Ab Centromere B Antibody Anti-Mitochondrial Ab Anti-Smooth Muscle Ab Hepatitis A IgM Ab Hep Bs Antigen Hep B Core IgM Ab Hepatitis C Ab (EIA) HSV I DNA PCR HSV II DNA PCR Monoscreen 12/20/18 12/20/18 12/20/18 03:45 03:45 03:45 WBC RBC Hgb Hct MCV MCH MCHC RDW RDW Differential Plt Count MPV Immature Gran % (Auto) Neut % (Auto) Lymph % (Auto) [place] % (Auto) Eos % (Auto) Baso % (Auto) Absolute Neuts (auto) Absolute Lymphs (auto) Total Counted Differential Comment Diff Path Review Platelet Estimate Anisocytosis PT INR Sodium Potassium Chloride Carbon Dioxide Anion Gap BUN Creatinine Estim Creat Clear Calc Est GFR (MDRD) Af Amer Est GFR (MDRD) Non-Af BUN/Creatinine Ratio Glucose Calcium Total Bilirubin Direct Bilirubin GGT AST ALT Alkaline Phosphatase Ammonia 22.0 Total Protein Albumin Globulin Albumin/Globulin Ratio Lipase Serum , Qual Urine Color Urine Clarity Urine pH Ur Specific [place] Urine Protein Urine Glucose (UA) Urine Ketones Urine Occult Blood Urine Nitrite Urine Bilirubin Urine Urobilinogen Ur Leukocyte Esterase Urine RBC Urine WBC Ur Squamous Epith Cells Urine Bacteria Urine Mucus Salicylates < 1.7 L Urine Opiates Screen Urine Methadone Screen Acetaminophen Ur Barbiturates Screen Ur Phencyclidine Scrn Ur Amphetamines Screen U Methamphetamin-MDMA U Benzodiazepines Scrn Urine Cocaine Screen U Cannabinoids Screen Ur Drug Screen Comment Ethyl Alcohol [place] Screen DIONI-1 Antibody SS-A/Ro IgG Antibody SS-B/La IgG Antibody Sm (Amado) Antibody SYR[employer] Antibody Scl-70 Scleroderma Ab Double Strand DNA Ab Centromere B Antibody Anti-Mitochondrial Ab Anti-Smooth Muscle Ab Hepatitis A IgM Ab Hep Bs Antigen Hep B Core IgM Ab Hepatitis C Ab (EIA) HSV I DNA PCR HSV II DNA PCR Monoscreen Negative 12/20/18 12/20/18 12/20/18 03:45 03:45 03:45 WBC 5.4 RBC 4.41 Hgb 12.2 Hct 38.7 MCV 87.8 MCH 27.7 MCHC 31.5 L RDW 14.6 RDW Differential 47.3 H Plt Count 201 MPV 9.7 Immature Gran % (Auto) 0.200 Neut % (Auto) 45.6 L Lymph % (Auto) 29.7 [place] % (Auto) 21.9 H Eos % (Auto) 1.1 Baso % (Auto) 1.5 H Absolute Neuts (auto) 2.4 Absolute Lymphs (auto) 1.59 Total Counted Not Reportable Differential Comment SCANNED Diff Path Review Platelet Estimate Anisocytosis PT INR Sodium 140 Potassium 3.7 Chloride 105 Carbon Dioxide 27.0 Anion Gap 8 BUN 8 Creatinine 0.76 Estim Creat Clear Calc 77.62 Est GFR (MDRD) Af Amer 113 Est GFR (MDRD) Non-Af 94 BUN/Creatinine Ratio 10.6 Glucose 80 Calcium 7.9 L Total Bilirubin 8.40 H Direct Bilirubin GGT AST 2095 H ALT 2380 H Alkaline Phosphatase 182 H Ammonia Total Protein 5.9 L Albumin 2.8 L Globulin 3.1 Albumin/Globulin Ratio 0.9 Lipase Serum , Qual Urine Color Urine Clarity Urine pH Ur Specific [place] Urine Protein Urine Glucose (UA) Urine Ketones Urine Occult Blood Urine Nitrite Urine Bilirubin Urine Urobilinogen Ur Leukocyte Esterase Urine RBC Urine WBC Ur Squamous Epith Cells Urine Bacteria Urine Mucus Salicylates Urine Opiates Screen Urine Methadone Screen Acetaminophen Ur Barbiturates Screen Ur Phencyclidine Scrn Ur Amphetamines Screen U Methamphetamin-MDMA U Benzodiazepines Scrn Urine Cocaine Screen U Cannabinoids Screen Ur Drug Screen Comment Ethyl Alcohol [place] Screen DIONI-1 Antibody SS-A/Ro IgG Antibody SS-B/La IgG Antibody Sm (Amado) Antibody S[employer] Antibody Scl-70 Scleroderma Ab Double Strand DNA Ab Centromere B Antibody Anti-Mitochondrial Ab Anti-Smooth Muscle Ab Hepatitis A IgM Ab Hep Bs Antigen Hep B Core IgM Ab Hepatitis C Ab (EIA) HSV I DNA PCR Pending HSV II DNA PCR Pending Monoscreen 12/20/18 12/20/18 12/20/18 05:40 06:33 06:33 WBC RBC Hgb Hct MCV MCH MCHC RDW RDW Differential Plt Count MPV Immature Gran % (Auto) Neut % (Auto) Lymph % (Auto) [place] % (Auto) Eos % (Auto) Baso % (Auto) Absolute Neuts (auto) Absolute Lymphs (auto) Total Counted Differential Comment Diff Path Review Platelet Estimate Anisocytosis PT INR Sodium Potassium Chloride Carbon Dioxide Anion Gap BUN Creatinine Estim Creat Clear Calc Est GFR (MDRD) Af Amer Est GFR (MDRD) Non-Af BUN/Creatinine Ratio Glucose Calcium Total Bilirubin Direct Bilirubin GGT AST ALT Alkaline Phosphatase Ammonia Total Protein Albumin Globulin Albumin/Globulin Ratio Lipase Serum , Qual Urine Color Urine Clarity Urine pH Ur Specific [place] Urine Protein Urine Glucose (UA) Urine Ketones Urine Occult Blood Urine Nitrite Urine Bilirubin Urine Urobilinogen Ur Leukocyte Esterase Urine RBC Urine WBC Ur Squamous Epith Cells Urine Bacteria Urine Mucus Salicylates Urine Opiates Screen NEGATIVE Urine Methadone Screen NEGATIVE Acetaminophen Ur Barbiturates Screen NEGATIVE Ur Phencyclidine Scrn NEGATIVE Ur Amphetamines Screen NEGATIVE U Methamphetamin-MDMA NEGATIVE U Benzodiazepines Scrn NEGATIVE Urine Cocaine Screen NEGATIVE U Cannabinoids Screen POSITIVE H Ur Drug Screen Comment Ethyl Alcohol [place] Screen Pending DIONI-1 Antibody Pending SS-A/Ro IgG Antibody Pending SS-B/La IgG Antibody Pending Sm (Amado) Antibody Pending SYRUP [employer] Antibody Pending Scl-70 Scleroderma Ab Pending Double Strand DNA Ab Pending Centromere B Antibody Pending Anti-Mitochondrial Ab Pending Anti-Smooth Muscle Ab Pending Hepatitis A IgM Ab Hep Bs Antigen Hep B Core IgM Ab Hepatitis C Ab (EIA) HSV I DNA PCR HSV II DNA PCR Monoscreen Clinical Impression(s) from Imaging Studies Abdomen/Pelvis CT 12/20/18 22:41 IMPRESSION: 1. The gallbladder is contracted, nonspecific. Suggest follow-up gallbladder ultrasound, preferably fasting exam. 2. The liver appears normal and no biliary dilatation or pancreatic ductal dilatation identified. 3. Small free fluid within the posterior cul-de-sac. 4. Prominent constipation. Individualized dose optimization techniques were used for this CT. at 0202 Reported and signed by: Claude Rangel MD Electronically Signed: Claude Rangel, at 2:01 EST Tel , Service support , Assessment/Plan Active and Suspected Problems Acute liver injury (Acute) RECOMMENDATIONS: 1. Likely okay to discontinue N acetylcysteine after current bag 2. Await hepatitis labs 3. Await right upper quadrant ultrasound 4. Okay to discontinue lactulose 5. Possible transfer from the intensive care unit later today IMPRESSIONS: 1. Acute liver injury Unclear etiology at this time. Tylenol level is less than 2. Patient is denying any acute ingestions such as mushrooms, undercooked seafood or illicit drugs. Patient does have an arbitrary dose of 400 mg of gabapentin. Patient appears to be responding to therapy appropriately. Likely okay to discontinue NAC therapy. Will await right upper quadrant ultrasound, but no dilation was noted of the ducts to suggest a gallstone. Patient does not have a physical exam consistent with a gallstone. Will hold off on surgery evaluation for now. Patient appears to be alert and oriented at this time. No indication for lactulose. 2. Possible UTI Urinalysis is consistent with possible UTI. Patient is currently menstruating, which does alter the results. Await the cultures. Reasonable to continue Rocephin for now until cultures are available. Code Visit Inpatient E&M: 49278 Init Hosp L2
[2018-12-20] MEDS: Pantoprazole Sodium 40 MG Tablet PO (09:48)
[2018-12-20] MEDS: Senna/Docusate Sodium 1 Tablet 2 TABLET PO (09:48)
[2018-12-20] MEDS: Cefazolin 1 GM/50 ML BAG IV ×2 (13:19→23:05)
--- NOTE | 2018-12-20 22:41 | CT_ITS ---
HISTORY: JAUNDICE UNKNOWN ORIGIN,ELEVATED LFT'S,DECREASED APPETITE,FATIGUE TECHNIQUE: Helically acquired images were obtained of the abdomen and pelvis following IV contrast. A radiation dose optimization technique was used for this scan. IV Contrast dosage and agent: 100 cc [id number] contrast Oral contrast: yes COMPARISON: None FINDINGS: Lower thorax: Clear. No pleural effusion. History of jaundice and evaluation of the liver is partly limited secondary to single phase CT technique. The gallbladder is contracted and no apparent gallstones are seen. The liver is normal in size and shows homogenous attenuation. No evidence of cirrhosis. The portal and hepatic veins appear patent. Portal vein is upper normal in diameter measuring 13 mm in diameter. The pancreas appears normal. No pancreatic ductal dilatation. Normal spleen. No free fluid within the upper abdomen. Bilateral renal excretion of contrast without evidence of hydronephrosis, pyelonephritis, or renal mass lesion. Adrenal glands are not enlarged. Abdominal aorta and IVC appear normal. No retroperitoneal lymphadenopathy. GI tract: Prominent constipation. The appendix is poorly seen. No pericecal or pericolonic inflammatory changes. Pelvis: Anteverted uterus. Small free fluid within the posterior cul-de-sac. 3 mm benign-appearing calcification of the urinary bladder dome, posteriorly versus adjacent uterine serosal calcification. Bilateral tubal ligation clips. Bones: No acute osseous abnormality. CT/Abdomen/Pelvis WITH Contrast IMPRESSION: 1. The gallbladder is contracted, nonspecific. Suggest follow-up gallbladder ultrasound, preferably fasting exam. 2. The liver appears normal and no biliary dilatation or pancreatic ductal dilatation identified. 3. Small free fluid within the posterior cul-de-sac. 4. Prominent constipation. Individualized dose optimization techniques were used for this CT. at 0202 Reported and signed by: Claude Rangel MD Electronically Signed: Claude Rangel, at 2:01 EST Tel , Service support ,
[2018-12-21 02:00] VITALS: BP 98/62; PULSE 87; RESP 16; TEMP 36.7; O2SAT 97
[2018-12-21 05:07] LABS: Hepatitis A IgM Antibody Negative (Negative)
[2018-12-21] MEDS: Cefazolin 1 GM/50 ML BAG IV ×3 (06:56→21:50)
[2018-12-21] MEDS: 0.9% Normal Saline 1,000 ML 150 ML IV (06:57)
[2018-12-21 07:21] VITALS: O2SAT 97
[2018-12-21 07:43] LABS: ALB/GLOB Ratio 0.8 RATIO (0.9-2.4); AST(SGOT) 1939 U/L (15-37); Alanine Aminotransfer ALT/SGPT 1883 U/L (13-56); Albumin, Serum 2.2 g/dL (3.2-5.0); Alkaline Phosphatase 137 U/L (45-117); Anion Gap 9 (5-15); BUN 4 mg/dL (7-18); BUN/Creat Ratio 6.9 RATIO (10-20); Calcium,Total 7.6 mg/dL (8.5-10.1); Chloride 113 mmol/L (98-107); Creatinine, Serum 0.58 mg/dL (0.55-1.02); EST Glomerular Filtration Rate 128 mL/min (>60); Est Glom Filt Rate - Afr Amer 155 mL/min (>60); Estimated Creatinine Clearance 101.71 ml/min; Globulin 2.6 g/dL (2.2-4.2); Glucose 83 mg/dL (74-106); Potassium 3.8 mmol/L (3.5-5.1); Protein, Total 4.8 g/dL (6.4-8.2); Sodium Level 143 mmol/L (136-145)
--- NOTE | 2018-12-21 08:31 | PCM.PROGNOTE ---
Patient Problems: Active and Suspected Problems Acute liver injury (Acute) Subjective: Patient did okay overnight. No acute issues were reported. Patient has remained hemodynamically stable. Patient reports mild subjective improvement in overall condition, but overall feels continued fatigue. Patient is not reporting any dysuria. - Physical Exam General: Alert, Oriented x3, Cooperative, No apparent distress, - - Appears stated age. Speaking in full sentences. HEENT: Atraumatic, PERRLA, EOMI, Normocephalic, - - Improved scleral icterus Oral: Moist Mucosa, No Gingival or Mucosal Lesions/ Ulcerations Neck: Supple, No JVD, No Nodes, Trachea Midline Lungs: Clear to auscultation, Normal air movement, No rhonchi, No wheeze, No rales Cardiovascular: Regular rate, Regular Rhythm, Normal S1, Normal S2, No murmurs, No rub noted, No Gallop Abdomen: Bowel Sounds Present, Soft, Non Tender, Non-Distended Extremities: No clubbing, No cyanosis, No edema Skin: No rashes, No breakdown Musculoskeletal: No Tenderness to Palpation of Joints or Extremities Lymphatic: No Cervical, Supraclavicular, or Inguinal Adenopathy Neurological: Cranial nerves II-XII grossly intact, Neuro grossly intact, Motor Exam 5/5 strength throughout Psych/Mental Status: Alert and oriented to time, place, person, mood and affect Vital Signs Temp Pulse Resp BP Pulse Ox 36.7 C 87 16 98/62 97 12/21/18 02:00 12/21/18 02:00 12/21/18 02:00 12/21/18 02:00 12/21/18 07:21 Oxygen Delivery Method Room Air Weight: 46.7 kg Body Mass Index (BMI) 20.2 Intake and Output for Last 24 Hours 12/19/18 12/20/18 12/21/18 23:59 23:59 23:59 Intake Total 2662.5 / 2662.5 2327 / 2327 Output Total 1750 / 1750 400 / 400 Balance 912.5 / 912.5 1927 / 192 Laboratory Tests Past 24 Hrs 12/21/18 06:06 Sodium 143 Potassium 3.8 Chloride 113 H Carbon Dioxide 21.0 Anion Gap 9 BUN 4 L Creatinine 0.58 Estim Creat Clear Calc 101.71 Est GFR (MDRD) Af Amer 155 Est GFR (MDRD) Non-Af 128 BUN/Creatinine Ratio 6.9 L Glucose 83 Calcium 7.6 L Total Bilirubin 7.40 H AST 1939 H ALT 1883 H Alkaline Phosphatase 137 H Total Protein 4.8 L Albumin 2.2 L Globulin 2.6 Albumin/Globulin Ratio 0.8 L Clinical Impression(s) from Imaging Studies Abdomen Ultrasound 12/20/18 05:55 IMPRESSION: Contracted slightly thickened gallbladder. Trace amount of pericholecystic fluid. Electronically Signed: Forest Gallegos MD at 10:36 EST , Service support , Medical Necessity - Tobacco Use Smoking Status: Former smoker Assessment/Plan All Active Problems Acute liver injury (Acute) RECOMMENDATIONS: 1. Continue supportive management 2. Hemodynamically stable on room air. Will sign off from a critical care perspective 3. Consider bowel regimen IMPRESSIONS: 1. Acute liver injury Unclear etiology at this time. Patient continues to improve with symptomatic supportive management. Immunologic workup is still pending, but laboratory results show improvement. Defer to hospitalist to follow-up. Low clinical suspicion for progression of fulminant liver failure. Will sign off from a critical care perspective. 2. Gram-negative UTI Patient does have growth of a gram-negative in the urine with greater than 100,000 CFU per mL. Patient is on empiric therapy at this time. No signs or symptoms of severe sepsis at this time. Code Visit Inpatient E&M: 41605 Subs Hosp L2
[2018-12-21] MEDS: Senna/Docusate Sodium 1 Tablet 2 TABLET PO (10:29)
[2018-12-21] MEDS: Pantoprazole Sodium 40 MG Tablet PO (10:29)
[2018-12-21] MEDS: Ibuprofen 600 MG Tablet PO ×2 (10:30→21:49)
[2018-12-21 10:31] VITALS: BP 103/66; PULSE 72; RESP 16; TEMP 36.6; O2SAT 97
--- NOTE | 2018-12-21 11:25 | CASEMGMT ---
MEY REGAN Face to Face with patient for initial transition planning/care coordination assessment. RN CM introduced self and role at [facility]. Patient lying in bed, alert and oriented. Patient willing to participate in assessment and is able to answer all questions appropriately. Care providers, pharmacy, and demographics verified. Patient wishes to discharge home, denies need for home health at this time. Patient states she has no further needs or concerns at this time. Referral made to for past drug use. CM to follow for discharge planning needs that may arise. PCP: None, list of PCPs given Specialists: None Preferred Pharmacy: [facility] Insurance: [employer] Prescription Benefit: yes Living Will/HPOA: None LNOK: father Living Arrangements: Patient states she lives with a family, is independent at home. Transportation: Self/friend DME/HHC: None, denies needs. Disposition Plan: Patient to discharge home with family support and follow-up plans in place. Mary Ann LARSON, RN, CM
--- NOTE | 2018-12-21 11:44 | PCM.PROGNOTE ---
<Jeffery Gross - Last Filed: 12/21/18 11:44> Patient Problems: Active and Suspected Problems Acute liver injury (Acute) Subjective: Pt resting comfortably in bed NAD. She currently complains only of a headache. No abdominal pain, nausea, vomiting. Prior to admission she did complain of dysuria, however this has completely resolved. She has no fevers or chills. She denies intravenous drug use ever in her life. She is sexually active. She did use fentanyl in the past, she states she only ever snorted it, again reiterating that she has never injected. She denies prior hx of hepatitis. - Physical Exam General: Alert, Oriented x3, Cooperative HEENT: Atraumatic, PERRLA, EOMI, Normocephalic Neck: Supple, No JVD, Negative Carotid Bruits Lungs: Clear to auscultation, Normal air movement Cardiovascular: Regular rate, No murmurs Abdomen: Bowel Sounds Present, Soft, Non Tender Extremities: No edema, Capillary Refill Less than 3 Seconds Skin: No rashes, No breakdown Musculoskeletal: No Tenderness to Palpation of Joints or Extremities Neurological: Cranial nerves II-XII grossly intact Psych/Mental Status: Normal Affect, Appropriate Vital Signs Temp Pulse Resp BP Pulse Ox 97.8 F 72 16 103/66 97 12/21/18 10:31 12/21/18 10:31 12/21/18 10:31 12/21/18 10:31 12/21/18 10:31 Oxygen Delivery Method Room Air Weight: 102 lb 15.294 oz Body Mass Index (BMI) 20.2 Intake and Output for Last 24 Hours 12/19/18 12/20/18 12/21/18 23:59 23:59 23:59 Intake Total 2662.5 / 2662.5 2327 / 2327 Output Total 1750 / 1750 400 / 400 Balance 912.5 / 912.5 1927 / 1927 Microbiology Past 72 Hours 12/20/18 05:40 Urine Culture - Preliminary Urine, Clean Catch GNR lactose electronic device repairer Laboratory Tests Past 24 Hrs 12/21/18 06:06 Sodium 143 Potassium 3.8 Chloride 113 H Carbon Dioxide 21.0 Anion Gap 9 BUN 4 L Creatinine 0.58 Estim Creat Clear Calc 101.71 Est GFR (MDRD) Af Amer 155 Est GFR (MDRD) Non-Af 128 BUN/Creatinine Ratio 6.9 L Glucose 83 Calcium 7.6 L Total Bilirubin 7.40 H AST 1939 H ALT 1883 H Alkaline Phosphatase 137 H Total Protein 4.8 L Albumin 2.2 L Globulin 2.6 Albumin/Globulin Ratio 0.8 L Medical Necessity - Tobacco Use Smoking Status: Former smoker Assessment/Plan All Active Problems Acute liver injury (Acute) 1. Acute liver injury - unclear etiology. rheumatoid pane pending, Hepatitis panel pending, HIV pending. Will cut back IV fluids - she states they are making her face swell although I do not appreciate any edema on exam. test negative. [place] test negative. No hx IV drug use per pt. Tylenol levels negative. Drug screen shows cannabinoids. Alcohol negative. Abd US with contracted and slightly thickened GB - no RUQ tenderness on palp at all for me today. Liver normal per CT. 2. Acute UTI - continue ancef. Dysuria resolved. Cx with GNR. DVT ppx: early ambulation. This patient was seen by Jeffery Gross PA-C under the supervision of Dr. Sinha <Kristian Sinha F - Last Filed: 12/21/18 13:15> - Physical Exam Vital Signs Temp Pulse Resp BP Pulse Ox 97.8 F 72 16 103/66 97 12/21/18 10:31 12/21/18 10:31 12/21/18 10:31 12/21/18 10:31 12/21/18 10:31 Oxygen Delivery Method Room Air Weight: 102 lb 15.294 oz Body Mass Index (BMI) 20.2 Intake and Output for Last 24 Hours 12/19/18 12/20/18 12/21/18 23:59 23:59 23:59 Intake Total 2662.5 / 2662.5 2327 / 2327 Output Total 1750 / 1750 400 / 400 Balance 912.5 / 912.5 1927 / 192 Microbiology Past 72 Hours 12/20/18 05:40 Urine Culture - Preliminary Urine, Clean Catch GNR lactose electronic device repairer Laboratory Tests Past 24 Hrs 12/21/18 06:06 Sodium 143 Potassium 3.8 Chloride 113 H Carbon Dioxide 21.0 Anion Gap 9 BUN 4 L Creatinine 0.58 Estim Creat Clear Calc 101.71 Est GFR (MDRD) Af Amer 155 Est GFR (MDRD) Non-Af 128 BUN/Creatinine Ratio 6.9 L Glucose 83 Calcium 7.6 L Total Bilirubin 7.40 H AST 1939 H ALT 1883 H Alkaline Phosphatase 137 H Total Protein 4.8 L Albumin 2.2 L Globulin 2.6 Albumin/Globulin Ratio 0.8 L Code Visit Addendum: Dr. Sinha I personally examined the patient and reviewed the chart. I agree with the above. 33-year-old female presenting with jaundice and a significant elevation in her liver enzymes. When she presented her AST and ALT were 2520 700 respectively with an elevated alk phos. She was also jaundiced with a total bilirubin of 9.7 and an elevated GGT of 134. Her labs are trending down and we are waiting for her autoimmune panels as well as her viral hepatitis panels. She initially was treated with N-acetylcysteine for possible acetaminophen toxicity because of her chronic use though her acetaminophen level on admission was normal. We will continue with Ancef for her UTI for another day. Inpatient E&M: 13376 Subs Hosp L2
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
[2018-12-21] MEDS: 0.9% Normal Saline 1,000 ML 75 ML IV (14:39)
[2018-12-21 14:45] VITALS: BP 106/70; PULSE 78; RESP 18; TEMP 36.8; O2SAT 97
[2018-12-21 21:41] VITALS: BP 105/75; PULSE 71; RESP 14; TEMP 36.6; O2SAT 99
[2018-12-22 02:33] VITALS: BP 107/74; PULSE 74; RESP 14; TEMP 36.7; O2SAT 100
[2018-12-22] MEDS: 0.9% Normal Saline 1,000 ML 75 ML IV ×2 (05:22→18:42)
[2018-12-22] MEDS: Cefazolin 1 GM/50 ML BAG IV ×3 (05:24→23:17)
[2018-12-22 06:36] LABS: ALB/GLOB Ratio 0.9 RATIO (0.9-2.4); AST(SGOT) 2182 U/L (15-37); Alanine Aminotransfer ALT/SGPT 1885 U/L (13-56); Albumin, Serum 2.3 g/dL (3.2-5.0); Alkaline Phosphatase 134 U/L (45-117); Anion Gap 8 (5-15); BUN 3 mg/dL (7-18); BUN/Creat Ratio 6.5 RATIO (10-20); Chloride 111 mmol/L (98-107); Creatinine, Serum 0.46 mg/dL (0.55-1.02); EST Glomerular Filtration Rate 165 mL/min (>60); Est Glom Filt Rate - Afr Amer 199 mL/min (>60); Estimated Creatinine Clearance 128.24 ml/min; Globulin 2.6 g/dL (2.2-4.2); Glucose 68 mg/dL (74-106); Potassium 3.7 mmol/L (3.5-5.1); Protein, Total 4.9 g/dL (6.4-8.2); Sodium Level 144 mmol/L (136-145)
[2018-12-22 07:47] VITALS: O2SAT 99
[2018-12-22 10:00] VITALS: BP 92/56; PULSE 84; RESP 16; TEMP 36.8; O2SAT 98
[2018-12-22] MEDS: Pantoprazole Sodium 40 MG Tablet PO (10:00)
[2018-12-22 10:10] VITALS: BP 102/64
--- NOTE | 2018-12-22 11:11 | PCM.PROGNOTE ---
<Jeffery Gross - Last Filed: 12/22/18 11:11> Patient Problems: Active and Suspected Problems Acute liver injury (Acute) Subjective: Pt complains of nausea and headache. She vomited up ibuprofen. Receiving phenergan and zofran for nausea. No abdominal pain. No cough/SOB. - Physical Exam General: Alert, Oriented x3, Cooperative HEENT: Atraumatic, PERRLA, EOMI, Normocephalic Neck: Supple, No JVD, Negative Carotid Bruits Lungs: Clear to auscultation, Normal air movement Cardiovascular: Regular rate, No murmurs Abdomen: Bowel Sounds Present, Soft, Non Tender Extremities: No edema, Capillary Refill Less than 3 Seconds Skin: No rashes, No breakdown Musculoskeletal: No Tenderness to Palpation of Joints or Extremities Neurological: Cranial nerves II-XII grossly intact Psych/Mental Status: Normal Affect, Appropriate, Alert and oriented to time, place, person, mood and affect Vital Signs Temp Pulse Resp BP Pulse Ox 98.0 F 74 14 107/74 99 12/22/18 02:33 12/22/18 02:33 12/22/18 02:33 12/22/18 02:33 12/22/18 07:47 Oxygen Delivery Method Room Air Weight: 102 lb 15.294 oz Body Mass Index (BMI) 20.2 Intake and Output for Last 24 Hours 12/20/18 12/21/18 12/22/18 23:59 23:59 23:59 Intake Total 2662.5 / 2662.5 3318 / 3318 962 / 962 Output Total 1750 / 1750 1000 / 1000 400 / 400 Balance 912.5 / 912.5 2318 / 2318 562 / 562 Microbiology Past 72 Hours 12/20/18 05:40 Urine Culture - Final Urine, Clean Catch Escherichia coli Laboratory Tests Past 24 Hrs 12/22/18 05:18 Sodium 144 Potassium 3.7 Chloride 111 H Carbon Dioxide 25.0 Anion Gap 8 BUN 3 L Creatinine 0.46 L Estim Creat Clear Calc 128.24 Est GFR (MDRD) Af Amer 199 Est GFR (MDRD) Non-Af 165 BUN/Creatinine Ratio 6.5 L Glucose 68 L Calcium 8.0 L Total Bilirubin 8.90 H AST 2182 H ALT 1885 H Alkaline Phosphatase 134 H Total Protein 4.9 L Albumin 2.3 L Globulin 2.6 Albumin/Globulin Ratio 0.9 Medical Necessity - Tobacco Use Smoking Status: Former smoker Assessment/Plan All Active Problems Acute liver injury (Acute) 1. Acute liver injury - unclear etiology. rheumatoid panel pending, Hepatitis panel pending, HIV pending. Continue gentle IV fluids. LFTs have slightly increased, and she has had increased nausea. test negative. [place] test negative. No hx IV drug use per pt. Tylenol levels negative. Drug screen shows cannabinoids. Alcohol negative. Abd US with contracted and slightly thickened GB - no RUQ tenderness on palp. Liver normal per CT. 2. Acute UTI - continue ancef. Dysuria resolved. Cx with pansens E coli. This is day 3 of abx. Continue IV as she just vomited up ibuprofen. 3. Hx of fentanyl abuse - nasal only per her. DVT ppx: early ambulation. This patient was seen by Jeffery Gross PA-C under the supervision of Dr. Sinha <Kristian Sinha - Last Filed: 12/22/18 12:48> - Physical Exam Vital Signs Temp Pulse Resp BP Pulse Ox 98.2 F 84 16 102/64 98 12/22/18 10:00 12/22/18 10:00 12/22/18 10:00 12/22/18 10:10 12/22/18 10:00 Oxygen Delivery Method Room Air Weight: 102 lb 15.294 oz Body Mass Index (BMI) 20.2 Intake and Output for Last 24 Hours 12/20/18 12/21/18 12/22/18 23:59 23:59 23:59 Intake Total 2662.5 / 2662.5 3318 / 3318 962 / 962 Output Total 1750 / 1750 1000 / 1000 400 / 400 Balance 912.5 / 912.5 2318 / 2318 562 / 562 Microbiology Past 72 Hours 12/20/18 05:40 Urine Culture - Final Urine, Clean Catch Escherichia coli Laboratory Tests Past 24 Hrs 12/22/18 05:18 Sodium 144 Potassium 3.7 Chloride 111 H Carbon Dioxide 25.0 Anion Gap 8 BUN 3 L Creatinine 0.46 L Estim Creat Clear Calc 128.24 Est GFR (MDRD) Af Amer 199 Est GFR (MDRD) Non-Af 165 BUN/Creatinine Ratio 6.5 L Glucose 68 L Calcium 8.0 L Total Bilirubin 8.90 H AST 2182 H ALT 1885 H Alkaline Phosphatase 134 H Total Protein 4.9 L Albumin 2.3 L Globulin 2.6 Albumin/Globulin Ratio 0.9 Code Visit Addendum: Dr. Sinha I personally examined the patient and reviewed the chart. I agree with the above. 33-year-old female presenting with acute liver injury, etiology at this point is unclear. She was initially on N-acetylcysteine for possible Tylenol exposure though her Tylenol level was normal. Unfortunately she has no PCP and I am afraid that if she was discharged prior to her hepatitis panel and her autoimmune workup being completed, should be lost to follow-up. Plan will be to wait for these results to finalize and then discharged with the appropriate referrals. Inpatient E&M: 41136 Subs Hosp L2
[2018-12-22] MEDS: proMETHazine 25 MG/ML Syringe 12.5 MG IV (14:35)
--- NOTE | 2018-12-22 15:04 | NURSING ---
Nauseated. Did not vomit but feels like she could. Also has a OSPINA. Does not want the Motrin right now despite Phenergan given. But she said she might try the motrin once the phenergan kicks in.
[2018-12-22 15:11] VITALS: BP 99/70; PULSE 72; RESP 18; TEMP 37.1; O2SAT 96
[2018-12-22 22:41] LABS: HSV 1 By PCR Negative (Negative)
--- NOTE | 2018-12-22 23:16 | NURSING ---
This RN taking over primary care from MEY Abraham.
[2018-12-22 23:20] VITALS: BP 115/79; PULSE 78; RESP 18; TEMP 36.8; O2SAT 100
[2018-12-23 04:56] VITALS: BP 105/69; PULSE 67; RESP 16; TEMP 36.8; O2SAT 98
[2018-12-23] MEDS: Cefazolin 1 GM/50 ML BAG IV (06:07)
[2018-12-23 06:43] LABS: ALB/GLOB Ratio 0.9 RATIO (0.9-2.4); AST(SGOT) 2186 U/L (15-37); Alanine Aminotransfer ALT/SGPT 1658 U/L (13-56); Albumin, Serum 2.4 g/dL (3.2-5.0); Alkaline Phosphatase 137 U/L (45-117); Anion Gap 5 (5-15); BUN 3 mg/dL (7-18); Calcium,Total 7.7 mg/dL (8.5-10.1); Chloride 109 mmol/L (98-107); Creatinine, Serum 0.61 mg/dL (0.55-1.02); EST Glomerular Filtration Rate 121 mL/min (>60); Est Glom Filt Rate - Afr Amer 146 mL/min (>60); Estimated Creatinine Clearance 96.71 ml/min; Globulin 2.7 g/dL (2.2-4.2); Glucose 72 mg/dL (74-106); Potassium 3.6 mmol/L (3.5-5.1); Protein, Total 5.1 g/dL (6.4-8.2); Sodium Level 140 mmol/L (136-145)
[2018-12-23 07:33] VITALS: BP 108/62; PULSE 73; RESP 18; TEMP 36.7; O2SAT 100
[2018-12-23 07:34] VITALS: O2SAT 100
[2018-12-23 08:38] LABS: HSV 2 By PCR Negative (Negative)
[2018-12-23 08:43] LABS: Pathologist Review Reviewed
[2018-12-23 08:52] LABS: Anti-Smooth Muscle ABS 17 Units (0-19)
[2018-12-23 09:12] LABS: HEPATITIS B SURFACE AG Positive (Negative); Hep C Antibodies <0.1 s/co ratio (0.0-0.9)
[2018-12-23 09:14] LABS: Hepatitis B Core AB IgM Positive (Negative)
--- NOTE | 2018-12-23 09:46 | PCM.PN.HOSP ---
Patient Problems: Active and Suspected Problems Acute liver injury (Acute) Subjective: Patient is a 33-year-old lady admitted admitted with jaundiced found to have acute liver injury. Patient was also found to have acute cystitis on admission admitted to regular nursing floor for further management Objective: GENERAL: cooperative HEENT: Atraumatic; EYES; Icteric, NECK; supple, normal thyroid, RESPIRATORY: Diminished to auscultation bilaterally, CARDIOVASCULAR: Regular S1 S2, GI: soft, non-tender, normoactive bowel sounds, : No Renal angle tenderness; EXTREMITIES: No edema, no clubbing, MUSCULOSKELETAL: No Joint Tenderness; NEURO: Awake; no lateralizing signs. SKIN: Jaundiced PSYCH; Normal affect Vitals/I&O's: Vital Signs Temp Pulse Resp BP Pulse Ox 98.1 F 73 18 108/62 100 12/23/18 07:33 12/23/18 07:33 12/23/18 07:33 12/23/18 07:33 12/23/18 07:34 Oxygen Delivery Method Room Air Weight: 46.7 kg Body Mass Index (BMI) 20.2 Intake and Output for Last 24 Hours 12/21/18 12/22/18 12/23/18 23:59 23:59 23:59 Intake Total 3318 / 3318 3593 / 3593 696 / 696 Output Total 1000 / 1000 400 / 400 500 / 500 Balance 2318 / 2318 3193 / 3193 196 / 196 Microbiology Past 72 Hours 12/20/18 05:40 Urine, Clean Catch Urine Culture - Final Escherichia coli Laboratory Results 12/19/18 22:45: Diff Path Review Reviewed 12/20/18 01:25: Hepatitis A IgM Ab Negative, Hep Bs Antigen Positive H, Hep B Core IgM Ab Positive H, Hepatitis C Ab (EIA) <0.1 12/20/18 03:45: HSV I DNA PCR Negative, HSV II DNA PCR Negative 12/20/18 06:33: Anti-Smooth Muscle Ab 17 12/23/18 05:25: Sodium 140, Potassium 3.6, Chloride 109 H, Carbon Dioxide 26.0, Anion Gap 5, BUN 3 L, Creatinine 0.61, Estim Creat Clear Calc 96.71, Est GFR (MDRD) Af Amer 146, Est GFR (MDRD) Non-Af 121, BUN/Creatinine Ratio 5.0 L, Glucose 72 L, Calcium 7.7 L, Total Bilirubin 9.30 H, AST 2186 H, ALT 1658 H, Alkaline Phosphatase 137 H, Total Protein 5.1 L, Albumin 2.4 L, Globulin 2.7, Albumin/Globulin Ratio 0.9 Current Medications Al Hydroxide/Mg Hydroxide (Mylanta Ii) 30 ml PO Q6H PRN PRN PRN Reason: Gastric burning Sodium Chloride () 250 mls @ 15 mls/hr IV .[id number] PRN PRN Reason: SALINE FLUSH Cefazolin Sodium () 1 gm in 50 mls @ 100 mls/hr IV Q8 [facility] Stop: 12/23/18 22:29 Last Admin: 12/23/18 06:07 Dose: 100 mls/hr Sodium Chloride () 1,000 mls @ 75 mls/hr IV .[id number] [facility] Last Admin: 12/22/18 18:42 Dose: 75 mls/hr Ibuprofen (Motrin) 600 mg PO Q6H PRN PRN PRN Reason: pain Last Admin: 12/21/18 21:49 Dose: 600 mg Ondansetron HCl (Zofran) 4 mg IV Q8H PRN PRN PRN Reason: NAUSEA Last Admin: 12/20/18 05:06 Dose: 4 mg Pantoprazole Sodium (Protonix) 40 mg PO DAILY [facility] Last Admin: 12/22/18 10:00 Dose: 40 mg Promethazine HCl (Phenergan) 12.5 mg IV Q4H PRN PRN PRN Reason: NAUSEA/VOMITING Last Admin: 12/22/18 14:35 Dose: 12.5 mg Senna/Docusate Sodium (Senokot-S, Marline-Colace) 2 tablet PO DAILY [facility] Last Admin: 12/22/18 11:07 Dose: Not Given Sodium Chloride () 5 - 15 ml IV UD PRN PRN Reason: SALINE FLUSH Last Admin: 12/20/18 05:06 Dose: 15 ml Medical Necessity - Tobacco Use Smoking Status: Former smoker Assessment/Plan All Active Problems Acute liver injury (Acute) Patient is a 33-year-old lady admitted admitted with jaundiced found to have acute liver injury. Patient was also found to have acute cystitis on admission admitted to regular nursing floor for further management 1. Acute liver injury secondary to acute hepatitis B infection. Patient has been admitted to regular nursing floor where she is currently being managed conservatively which is the recommended treatment. The patient condition however continues to worsen then patient may need to be transferred to tertiary care center 2. Acute cystitis with E. coli treated appropriately 3. Abnormal Lab Results 12/19/18 12/20/18 12/20/18 22:45 01: 03:45 [address] Review Reviewed Sodium Potassium Chloride Carbon Dioxide Anion Gap BUN Creatinine Estim Creat Clear Calc Est GFR (MDRD) Af Amer Est GFR (MDRD) Non-Af BUN/Creatinine Ratio Glucose Calcium Total Bilirubin AST ALT Alkaline Phosphatase Total Protein Albumin Globulin Albumin/Globulin Ratio Anti-Smooth Muscle Ab Hepatitis A IgM Ab Negative Hep Bs Antigen Positive H Hep B Core IgM Ab Positive H Hepatitis C Ab (EIA) <0.1 HSV I DNA PCR Negative HSV II DNA PCR Negative 12/20/18 12/23/18 06:33 05:25 Diff [address] Review Sodium 140 Potassium 3.6 Chloride 109 H Carbon Dioxide 26.0 Anion Gap 5 BUN 3 L Creatinine 0.61 Estim Creat Clear Calc 96.71 Est GFR (MDRD) Af Amer 146 Est GFR (MDRD) Non-Af 121 BUN/Creatinine Ratio 5.0 L Glucose 72 L Calcium 7.7 L Total Bilirubin 9.30 H AST 2186 H ALT 1658 H Alkaline Phosphatase 137 H Total Protein 5.1 L Albumin 2.4 L Globulin 2.7 Albumin/Globulin Ratio 0.9 Anti-Smooth Muscle Ab 17 Hepatitis A IgM Ab Hep Bs Antigen Hep B Core IgM Ab Hepatitis C Ab (EIA) HSV I DNA PCR HSV II DNA PCR Microbiology 12/20/18 05:40 Urine, Clean Catch Urine Culture - Final Escherichia coli Clinical Impression(s) from Imaging Studies Abdomen Ultrasound 12/20/18 05:55 IMPRESSION: Contracted slightly thickened gallbladder. Trace amount of pericholecystic fluid. Electronically Signed: Forest Gallegos MD at 10:36 EST , Service support , Abdomen/Pelvis CT 12/20/18 22:41 IMPRESSION: 1. The gallbladder is contracted, nonspecific. Suggest follow-up gallbladder ultrasound, preferably fasting exam. 2. The liver appears normal and no biliary dilatation or pancreatic ductal dilatation identified. 3. Small free fluid within the posterior cul-de-sac. 4. Prominent constipation. Individualized dose optimization techniques were used for this CT. at 0202 Reported and signed by: Claude Rangel MD Electronically Signed: Claude Rangel, at 2:01 EST Tel , Service support , Active Medications Al Hydroxide/Mg Hydroxide (Mylanta Ii) 30 ml PO Q6H PRN PRN PRN Reason: Gastric burning Sodium Chloride () 250 mls @ 15 mls/hr IV .[id number] PRN PRN Reason: SALINE FLUSH Cefazolin Sodium () 1 gm in 50 mls @ 100 mls/hr IV Q8 [facility] Stop: 12/23/18 22:29 Last Admin: 12/23/18 06:07 Dose: 100 mls/hr Sodium Chloride () 1,000 mls @ 75 mls/hr IV .[id number] [facility] Last Admin: 12/22/18 18:42 Dose: 75 mls/hr Ibuprofen (Motrin) 600 mg PO Q6H PRN PRN PRN Reason: pain Last Admin: 12/21/18 21:49 Dose: 600 mg Ondansetron HCl (Zofran) 4 mg IV Q8H PRN PRN PRN Reason: NAUSEA Last Admin: 12/20/18 05:06 Dose: 4 mg Pantoprazole Sodium (Protonix) 40 mg PO DAILY [facility] Last Admin: 12/22/18 10:00 Dose: 40 mg Promethazine HCl (Phenergan) 12.5 mg IV Q4H PRN PRN PRN Reason: NAUSEA/VOMITING Last Admin: 12/22/18 14:35 Dose: 12.5 mg Senna/Docusate Sodium (Senokot-S, Marline-Colace) 2 tablet PO DAILY [facility] Last Admin: 12/22/18 11:07 Dose: Not Given Sodium Chloride () 5 - 15 ml IV UD PRN PRN Reason: SALINE FLUSH Last Admin: 12/20/18 05:06 Dose: 15 ml Code Visit Inpatient E&M: [id number] [facility] Hosp L2
--- NOTE | 2018-12-23 09:53 | PN_ITS ---
Patient Problems: Active and Suspected Problems Acute liver injury (Acute) Subjective: Patient is a 33-year-old lady admitted admitted with jaundiced found to have acute liver injury. Patient was also found to have acute cystitis on admission admitted to regular nursing floor for further management Objective: GENERAL: cooperative HEENT: Atraumatic; EYES; Icteric, NECK; supple, normal thyroid, RESPIRATORY: Diminished to auscultation bilaterally, CARDIOVASCULAR: Regular S1 S2, GI: soft, non-tender, normoactive bowel sounds, : No Renal angle tenderness; EXTREMITIES: No edema, no clubbing, MUSCULOSKELETAL: No Joint Tenderness; NEURO: Awake; no lateralizing signs. SKIN: Jaundiced PSYCH; Normal affect Vitals/I&O's: Vital Signs Temp Pulse Resp BP Pulse Ox 98.1 F 73 18 108/62 100 12/23/18 07:33 12/23/18 07:33 12/23/18 07:33 12/23/18 07:33 12/23/18 07:34 Oxygen Delivery Method Room Air Weight: 46.7 kg Body Mass Index (BMI) 20.2 Intake and Output for Last 24 Hours 12/21/18 12/22/18 12/23/18 23:59 23:59 23:59 Intake Total 3318 / 3318 3593 / 3593 696 / 696 Output Total 1000 / 1000 400 / 400 500 / 500 Balance 2318 / 2318 3193 / 3193 196 / 196 Microbiology Past 72 Hours 12/20/18 05:40 Urine, Clean Catch Urine Culture - Final Escherichia coli Laboratory Results 12/19/18 22:45: Diff Path Review Reviewed 12/20/18 01:25: Hepatitis A IgM Ab Negative, Hep Bs Antigen Positive H, Hep B Core IgM Ab Positive H, Hepatitis C Ab (EIA) <0.1 12/20/18 03:45: HSV I DNA PCR Negative, HSV II DNA PCR Negative 12/20/18 06:33: Anti-Smooth Muscle Ab 17 12/23/18 05:25: Sodium 140, Potassium 3.6, Chloride 109 H, Carbon Dioxide 26.0, Anion Gap 5, BUN 3 L, Creatinine 0.61, Estim Creat Clear Calc 96.71, Est GFR (MDRD) Af Amer 146, Est GFR (MDRD) Non-Af 121, BUN/Creatinine Ratio 5.0 L, Glucose 72 L, Calcium 7.7 L, Total Bilirubin 9.30 H, AST 2186 H, ALT 1658 H, Alkaline Phosphatase 137 H, Total Protein 5.1 L, Albumin 2.4 L, Globulin 2.7, Albumin/Globulin Ratio 0.9 Current Medications Al Hydroxide/Mg Hydroxide (Mylanta Ii) 30 ml PO Q6H PRN PRN PRN Reason: Gastric burning Sodium Chloride () 250 mls @ 15 mls/hr IV .[id number] PRN PRN Reason: SALINE FLUSH Cefazolin Sodium () 1 gm in 50 mls @ 100 mls/hr IV Q8 [facility] Stop: 12/23/18 22:29 Last Admin: 12/23/18 06:07 Dose: 100 mls/hr Sodium Chloride () 1,000 mls @ 75 mls/hr IV .[id number] [facility] Last Admin: 12/22/18 18:42 Dose: 75 mls/hr Ibuprofen (Motrin) 600 mg PO Q6H PRN PRN PRN Reason: pain Last Admin: 12/21/18 21:49 Dose: 600 mg Ondansetron HCl (Zofran) 4 mg IV Q8H PRN PRN PRN Reason: NAUSEA Last Admin: 12/20/18 05:06 Dose: 4 mg Pantoprazole Sodium (Protonix) [address] [facility] Last Admin: 12/22/18 10:00 Dose: 40 mg Promethazine HCl (Phenergan) 12.5 mg IV Q4H PRN PRN PRN Reason: NAUSEA/VOMITING Last Admin: 12/22/18 14:35 Dose: 12.5 mg Senna/Docusate Sodium (Senokot-S, Marline-Colace) [address] [facility] Last Admin: 12/22/18 11:07 Dose: Not Given Sodium Chloride () 5 - 15 ml IV UD PRN PRN Reason: SALINE FLUSH Last Admin: 12/20/18 05:06 Dose: 15 ml Medical Necessity - Tobacco Use Smoking Status: Former smoker Assessment/Plan All Active Problems Acute liver injury (Acute) Patient is a 33-year-old lady admitted admitted with jaundiced found to have acute liver injury. Patient was also found to have acute cystitis on admission admitted to regular nursing floor for further management 1. Acute liver injury secondary to acute hepatitis B infection. Patient has been admitted to regular nursing floor where she is currently being managed conservatively which is the recommended treatment. The patient condition however continues to worsen then patient may need to be transferred to tertiary care center 2. Acute cystitis with E. coli treated appropriately 3. Abnormal Lab Results 12/19/18 12/20/18 12/20/18 22:45 01: 03:45 [address] Review Reviewed Sodium Potassium Chloride Carbon Dioxide Anion Gap BUN Creatinine Estim Creat Clear Calc Est GFR (MDRD) Af Amer Est GFR (MDRD) Non-Af BUN/Creatinine Ratio Glucose Calcium Total Bilirubin AST ALT Alkaline Phosphatase Total Protein Albumin Globulin Albumin/Globulin Ratio Anti-Smooth Muscle Ab Hepatitis A IgM Ab Negative Hep Bs Antigen Positive H Hep B Core IgM Ab Positive H Hepatitis C Ab (EIA) <0.1 HSV I DNA PCR Negative HSV II DNA PCR Negative 12/20/18 12/23/18 06:33 05:25 Diff Path Review Sodium 140 Potassium 3.6 Chloride 109 H Carbon Dioxide 26.0 Anion Gap 5 BUN 3 L Creatinine 0.61 Estim Creat Clear Calc 96.71 Est GFR (MDRD) Af Amer 146 Est GFR (MDRD) Non-Af 121 BUN/Creatinine Ratio 5.0 L Glucose 72 L Calcium 7.7 L Total Bilirubin 9.30 H AST 2186 H ALT 1658 H Alkaline Phosphatase 137 H Total Protein 5.1 L Albumin 2.4 L Globulin 2.7 Albumin/Globulin Ratio 0.9 Anti-Smooth Muscle Ab 17 Hepatitis A IgM Ab Hep Bs Antigen Hep B Core IgM Ab Hepatitis C Ab (EIA) HSV I DNA PCR HSV II DNA PCR Microbiology 12/20/18 05:40 Urine, Clean Catch Urine Culture - Final Escherichia coli Clinical Impression(s) from Imaging Studies Abdomen Ultrasound 12/20/18 05:55 IMPRESSION: Contracted slightly thickened gallbladder. Trace amount of pericholecystic fluid. Electronically Signed: Forest Gallegos MD at 10:36 EST , Service support , Abdomen/Pelvis CT 12/20/18 22:41 IMPRESSION: 1. The gallbladder is contracted, nonspecific. Suggest follow-up gallbladder ultrasound, preferably fasting exam. 2. The liver appears normal and no biliary dilatation or pancreatic ductal dilatation identified. 3. Small free fluid within the posterior cul-de-sac. 4. Prominent constipation. Individualized dose optimization techniques were used for this CT. at 0202 Reported and signed by: Claude Rangel MD Electronically Signed: Claude Rangel, at 2:01 EST Tel , Service support , Active Medications Al Hydroxide/Mg Hydroxide (Mylanta Ii) 30 ml PO Q6H PRN PRN PRN Reason: Gastric burning Sodium Chloride () 250 mls @ 15 mls/hr IV .[id number] PRN PRN Reason: SALINE FLUSH Cefazolin Sodium () 1 gm in 50 mls @ 100 mls/hr IV Q8 [facility] Stop: 12/23/18 22:29 Last Admin: 12/23/18 06:07 Dose: 100 mls/hr Sodium Chloride () 1,000 mls @ 75 mls/hr IV .[id number] [facility] Last Admin: 12/22/18 18:42 Dose: 75 mls/hr Ibuprofen (Motrin) 600 mg PO Q6H PRN PRN PRN Reason: pain Last Admin: 12/21/18 21:49 Dose: 600 mg Ondansetron HCl (Zofran) 4 mg IV Q8H PRN PRN PRN Reason: NAUSEA Last Admin: 12/20/18 05:06 Dose: 4 mg Pantoprazole Sodium (Protonix) [address] [facility] Last Admin: 12/22/18 10:00 Dose: 40 mg Promethazine HCl (Phenergan) 12.5 mg IV Q4H PRN PRN PRN Reason: NAUSEA/VOMITING Last Admin: 12/22/18 14:35 Dose: 12.5 mg Senna/Docusate Sodium (Senokot-S, Marline-Colace) [address] [facility] Last Admin: 12/22/18 11:07 Dose: Not Given Sodium Chloride () 5 - 15 ml IV UD PRN PRN Reason: SALINE FLUSH Last Admin: 12/20/18 05:06 Dose: 15 ml Code Visit Inpatient E&M: 86058 [facility] L2
[2018-12-23] MEDS: Cephalexin 500 MG Capsule PO ×2 (11:13→21:01)
[2018-12-23] MEDS: Pantoprazole Sodium 40 MG Tablet PO (11:13)
[2018-12-23] MEDS: 0.9% Normal Saline 1,000 ML 75 ML IV (11:13)
[2018-12-23 13:59] VITALS: BP 100/73; PULSE 75; RESP 18; TEMP 37.1; O2SAT 100
--- NOTE | 2018-12-23 14:00 | CASEMGMT ---
Social Work Labor and Delivery Unit Summary: Follow up with patient today for resources. Chart reviewed and noted that admission continues. Noted that patient did have a positive drug screen for marijuana at admission, this was not disclosed during initial meeting with patient on Sunday. Met with patient in room to provide resources for home going. Broached with patient the positive drug screen for marijuana, that this was not previously discussed but may be something patient wants to think about moving forward. Reviewed resources for home going and let patient know that if patient deices that wants to commit to some type of referral prior to going home social work remains available to assist as needed or indicated. Assessment: Patient sleeping upon social work visit but woke up easily. Patient quiet but did just wake up. Patient reports that still just wants information, declines referrals currently. Patient thanked this insurance underwriter sales several times for following up with information. Patient denies any other needs. Intervention: List of outpatient mental health providers, list of community substance abuse treatment providers, [facility] program pamphlet, and handout on employment training services through [facility] given. Plan: Plans to return home to friend?s house. Patient has been given resources for home going and has been given this insurance underwriter sales?s number in case changes mind about accepting referrals before leaving the hospital. Updated assigned social media developer for [facility] to interventions provided. No other services requested or indicated. -RYAN Clay MSW
[2018-12-23] MEDS: proMETHazine 25 MG/ML Syringe 12.5 MG IV (20:39)
[2018-12-23] MEDS: 0.9% NaCl Peripheral Flush Adult/Peds IV (20:39)
[2018-12-23 20:40] VITALS: BP 124/79; PULSE 76; RESP 16; TEMP 36.7; O2SAT 98
[2018-12-24 02:30] VITALS: BP 105/61; PULSE 72; RESP 16; TEMP 36.6; O2SAT 96
[2018-12-24] MEDS: 0.9% Normal Saline 1,000 ML 75 ML IV ×2 (02:31→15:33)
[2018-12-24 07:06] LABS: Hematocrit 36.9 % (37-47); Mean Corp Hgb Conc 32.5 g/gl (32-36); Mean Corpuscular Hgb 28.4 pg (27.0-32.0); Mean Corpuscular Volume 87.2 fL (81-99); Platelet Count 225 K/mm3 (150-450); RBC Distribution Width CV 15.4 % (11.6-14.6); RBC Distribution Width SD 48.5 fl (35.1-43.9); Red Blood Count 4.23 M/mm3 (4.2-5.4); White Blood Count 5.1 K/mm3 (4.4-11.0)
[2018-12-24 07:08] LABS: Scan Indicated on CBC? Y/N NO
[2018-12-24 07:57] LABS: AST(SGOT) 1801 U/L (15-37); Alanine Aminotransfer ALT/SGPT 1489 U/L (13-56); Albumin, Serum 2.5 g/dL (3.2-5.0); Alkaline Phosphatase 138 U/L (45-117); Anion Gap 9 (5-15); BUN 4 mg/dL (7-18); BUN/Creat Ratio 7.7 RATIO (10-20); Bilirubin, Direct 8.13 mg/dL (0.00-0.30); Calcium,Total 8.3 mg/dL (8.5-10.1); Chloride 109 mmol/L (98-107); Creatinine, Serum 0.52 mg/dL (0.55-1.02); EST Glomerular Filtration Rate 144 mL/min (>60); Est Glom Filt Rate - Afr Amer 174 mL/min (>60); Estimated Creatinine Clearance 113.44 ml/min; Globulin 2.8 g/dL (2.2-4.2); Glucose 74 mg/dL (74-106); Magnesium 2.2 mg/dL (1.6-2.6); Potassium 3.9 mmol/L (3.5-5.1); Protein, Total 5.3 g/dL (6.4-8.2); Sodium Level 142 mmol/L (136-145)
[2018-12-24 09:09] VITALS: BP 109/69; PULSE 75; RESP 16; TEMP 36.3; O2SAT 96
--- NOTE | 2018-12-24 09:46 | PCM.PN.HOSP ---
Patient Problems: Active and Suspected Problems Acute liver injury (Acute) Subjective: Patient seen, remains jaundiced. Liver function test remains significantly elevated however appears to be trending down did discuss with patient about possibly being discharged tomorrow if her liver function tests continue to improve with subsequent follow-up with PCP for repeat lab work as outpatient. Objective: GENERAL: cooperative HEENT: Atraumatic; EYES; Icteric, NECK; supple, normal thyroid, RESPIRATORY: Diminished to auscultation bilaterally, CARDIOVASCULAR: Regular S1 S2, GI: soft, non-tender, normoactive bowel sounds, : No Renal angle tenderness; EXTREMITIES: No edema, no clubbing, MUSCULOSKELETAL: No Joint Tenderness; NEURO: Awake; no lateralizing signs. SKIN: Jaundiced PSYCH; Normal affect Vitals/I&O's: Vital Signs Temp Pulse Resp BP Pulse Ox 97.3 F L 75 16 109/69 96 12/24/18 09:09 12/24/18 09:09 12/24/18 09:09 12/24/18 09:09 12/24/18 09:09 Oxygen Delivery Method Room Air Weight: 46.7 kg Body Mass Index (BMI) 20.2 Intake and Output for Last 24 Hours 12/22/18 12/23/18 12/24/18 23:59 23:59 23:59 Intake Total 3593 / 3593 2700 / 2700 1225 / 1225 Output Total 400 / 400 500 / 500 Balance 3193 / 3193 2200 / 2200 1225 / 1225 Microbiology Past 72 Hours 12/20/18 05:40 Urine, Clean Catch Urine Culture - Final Escherichia coli Laboratory Results 12/24/18 06:04: WBC 5.1, RBC 4.23, Hgb 12.0, Hct 36.9 L, MCV 87.2, MCH 28.4, MCHC 32.5, RDW 15.4 H, RDW Differential 48.5 H, Plt Count 225, MPV 11.0 12/24/18 06:04: Sodium 142, Potassium 3.9, Chloride 109 H, Carbon Dioxide 24.0, Anion Gap 9, BUN 4 L, Creatinine 0.52 L, Estim Creat Clear Calc 113.44, Est GFR (MDRD) Af Amer 174, Est GFR (MDRD) Non-Af 144, BUN/Creatinine Ratio 7.7 L, Glucose 74, Calcium 8.3 L, Magnesium 2.2, Total Bilirubin 10.20 H, Direct Bilirubin 8.13 H, AST 1801 H, ALT 1489 H, Alkaline Phosphatase 138 H, Total Protein 5.3 L, Albumin 2.5 L, Globulin 2.8 Current Medications Al Hydroxide/Mg Hydroxide (Mylanta Ii) 30 ml PO Q6H PRN PRN PRN Reason: Gastric burning Cephalexin (Keflex) 500 mg PO Q12 [facility] Last Admin: 12/23/18 21:01 Dose: 500 mg Sodium Chloride () 250 mls @ 15 mls/hr IV .[id number] PRN PRN Reason: SALINE FLUSH Sodium Chloride () 1,000 mls @ 75 mls/hr IV .[id number] [facility] Last Admin: 12/24/18 02:31 Dose: 75 mls/hr Ibuprofen (Motrin) 600 mg PO Q6H PRN PRN PRN Reason: pain Last Admin: 12/21/18 21:49 Dose: 600 mg Ondansetron HCl (Zofran) 4 mg IV Q8H PRN PRN PRN Reason: NAUSEA Last Admin: 12/20/18 05:06 Dose: 4 mg Pantoprazole Sodium (Protonix) 40 mg PO DAILY [facility] Last Admin: 12/23/18 11:13 Dose: 40 mg Promethazine HCl (Phenergan) 12.5 mg IV Q4H PRN PRN PRN Reason: NAUSEA/VOMITING Last Admin: 12/23/18 20:39 Dose: 12.5 mg Senna/Docusate Sodium (Senokot-S, Marline-Colace) 2 tablet PO DAILY [facility] Last Admin: 12/23/18 11:13 Dose: Not Given Sodium Chloride () 5 - 15 ml IV UD PRN PRN Reason: SALINE FLUSH Last Admin: 12/23/18 20:39 Dose: 10 ml Medical Necessity - Tobacco Use Smoking Status: Former smoker Assessment/Plan All Active Problems Acute liver injury (Acute) Patient is a 33-year-old lady admitted admitted with jaundiced found to have acute liver injury. Patient was also found to have acute cystitis on admission admitted to regular nursing floor for further management 1. Acute liver injury secondary to acute hepatitis B infection. Patient has been admitted to regular nursing floor where she is currently being managed conservatively which is the recommended treatment. The patient condition however continues to worsen then patient may need to be transferred to tertiary care center 2. Acute cystitis with E. coli treated appropriately 3. DVT prophylaxis low risk did encourage early ambulation 4. History of polysubstance abuse 5. Tobacco dependence counseled on cessation, Code Visit Inpatient E&M: 50615 [facility] Hosp L2
[2018-12-24] MEDS: Cephalexin 500 MG Capsule PO ×2 (10:15→22:43)
[2018-12-24] MEDS: Pantoprazole Sodium 40 MG Tablet PO (10:15)
[2018-12-24 12:46] LABS: ANTINUCLEAR ANTIBODIES DIRECT Negative (Negative); Anti-Mitochondrial AB <20.0 Units (0.0-20.0)
[2018-12-24 14:00] VITALS: RESP 18
[2018-12-24 15:30] VITALS: BP 104/67; PULSE 74; RESP 16; TEMP 37.2; O2SAT 98
[2018-12-24 22:30] VITALS: BP 102/76; PULSE 82; RESP 16; TEMP 36.8; O2SAT 98
[2018-12-24] MEDS: Ondansetron 4 MG/2 ML Vial IV (22:50)
[2018-12-25] MEDS: proMETHazine 25 MG/ML Syringe 12.5 MG IV (00:23)
[2018-12-25 04:30] VITALS: BP 103/81; PULSE 69; RESP 16; TEMP 36.7; O2SAT 97
[2018-12-25] MEDS: 0.9% Normal Saline 1,000 ML 75 ML IV (04:31)
[2018-12-25 06:10] LABS: AST(SGOT) 1221 U/L (15-37); Alanine Aminotransfer ALT/SGPT 1232 U/L (13-56); Albumin, Serum 2.5 g/dL (3.2-5.0); Alkaline Phosphatase 138 U/L (45-117); Anion Gap 10 (5-15); BUN 4 mg/dL (7-18); BUN/Creat Ratio 7.2 RATIO (10-20); Bilirubin, Direct 7.55 mg/dL (0.00-0.30); Chloride 108 mmol/L (98-107); Creatinine, Serum 0.56 mg/dL (0.55-1.02); EST Glomerular Filtration Rate 133 mL/min (>60); Est Glom Filt Rate - Afr Amer 161 mL/min (>60); Estimated Creatinine Clearance 105.34 ml/min; Glucose 80 mg/dL (74-106); Potassium 3.7 mmol/L (3.5-5.1); Protein, Total 5.5 g/dL (6.4-8.2); Sodium Level 143 mmol/L (136-145)
--- NOTE | 2018-12-25 08:28 | DCINST_ITS ---
- Discharge Diagnoses Current Active Problems: Current Active and Chronic Problems Acute liver injury (Acute) History of fentanyl use (Chronic) History of alcohol use (Chronic) You will use the following diet at home:: No restrictions Your food should be the consistency of: Regular Allergies/Adverse Reactions: Allergies No Known Allergies Allergy (Verified 12/19/18 22:18) Medications to take at Discharge Cephalexin [Keflex] 500 mg PO Q12 #10 capsule 12/25/18 The following prescriptions were given: Cephalexin [Keflex] 500 mg PO Q12 #10 capsule Primary Care Physician: Care Physician,No Primary [Primary Care Provider] - Please follow up with your Primary Care Physician in: Follow-up with@PCP within a week for repeat hepatic panel Test Results: Test results from this visit will be discussed in further detail at your follow- up appointment, if applicable. Proposed Discharge Date: 12/25/18
--- NOTE | 2018-12-25 08:29 | PCM.DC.SUM ---
Discharge Date and Diagnosis - Problem List Patient Problems: Active and Suspected Problems Acute cystitis (Acute) Acute hepatitis B (Acute) Acute liver injury (Acute) Date of Admission: 12/20/18 Date of Discharge: 12/25/18 - Primary Discharge Diagnosis Active and Suspected Problems Acute cystitis (Acute) Acute hepatitis B (Acute) Acute liver injury (Acute) - Secondary Discharge Diagnosis Chronic Problems History of fentanyl use (Chronic) History of alcohol use (Chronic) Hospital Course and Treatment Summary of Care Provided: Patient is a 33-year-old lady admitted admitted with jaundiced found to have acute liver injury. Patient was also found to have acute cystitis on admission admitted to regular nursing floor for further management 1. Acute liver injury secondary to acute hepatitis B infection. Patient has been admitted to regular nursing floor where she is currently being managed conservatively which is the recommended treatment. Current condition did improve with the conservative management. Patient was instructed to follow-up with PCP within a week for repeat hepatic function test 2. Acute cystitis with E. coli treated appropriately discharged home on cephalexin 3. DVT prophylaxis low risk did encourage early ambulation 4. History of polysubstance abuse Patient Problems: Active and Suspected Problems Acute cystitis (Acute) Acute hepatitis B (Acute) Acute liver injury (Acute) - Physical Exam General: Alert HEENT: Atraumatic Neck: Supple Neurological: Neuro grossly intact Psych/Mental Status: Normal Affect Vital Signs Temp Pulse Resp BP Pulse Ox 98.1 F 69 16 103/81 H 97 12/25/18 04:30 12/25/18 04:30 12/25/18 04:30 12/25/18 04:30 12/25/18 04:30 Oxygen Delivery Method Room Air Weight: 46.7 kg Body Mass Index (BMI) 20.2 Intake and Output for Last 24 Hours 12/23/18 12/24/18 12/25/18 23:59 23:59 23:59 Intake Total 2700 / 2700 3475 / 3475 1551 / 1551 Output Total 500 / 500 Balance 2200 / 2200 3475 / 3475 1551 / 1551 Microbiology Past 72 Hours 12/20/18 05:40 Urine Culture - Final Urine, Clean Catch Escherichia coli Laboratory Tests Past 24 Hrs 12/20/18 12/25/18 06:33 05:24 Sodium 143 Potassium 3.7 Chloride 108 H Carbon Dioxide 25.0 Anion Gap 10 BUN 4 L Creatinine 0.56 Estim Creat Clear Calc 105.34 Est GFR (MDRD) Af Amer 161 Est GFR (MDRD) Non-Af 133 BUN/Creatinine Ratio 7.2 L Glucose 80 Calcium 8.0 L Total Bilirubin 9.20 H Direct Bilirubin 7.55 H AST 1221 H ALT 1232 H Alkaline Phosphatase 138 H Total Protein 5.5 L Albumin 2.5 L Globulin 3.0 TATIANA Screen Negative DIONI-1 Antibody Not Reportable SS-A/Ro IgG Antibody Not Reportable SS-B/La IgG Antibody Not Reportable Sm (Amado) Antibody Not Reportable RN INTERNAL MEDICINE Antibody Not Reportable Scl-70 Scleroderma Ab Not Reportable Double Strand DNA Ab Not Reportable Centromere B Antibody Not Reportable Anti-Mitochondrial Ab <20.0 Discharge Diet: No Restrictions Home Medications: Medications to take at Discharge Cephalexin [Keflex] 500 mg PO Q12 #10 capsule 12/25/18 Following Prescrptions Were Given to Patient: Cephalexin [Keflex] 500 mg PO Q12 #10 capsule Primary Care Physician: Care Physician,No Primary [Primary Care Provider] - Please follow up with your Primary Care Physician in: Follow-up with@PCP within a week for repeat hepatic panel Disposition: Home Minutes spent on discharge:: 35 Patient Condition:: Stable Medical Necessity - Tobacco Use Smoking Status: Former smoker Meaningful Use Info Meaningful Use Diagnoses (Choose all that apply): None applicable Code Visit Inpatient E&M: 62254 Disch Hosp
--- NOTE | 2018-12-25 08:32 | CASEMGMT ---
MEY REGAN scheduled appt to establish patient with PCP. Patient's first choice, Dr. Noonan is not accepting new patients. Patient's second choice, Dr. Gonzalez, is accepting patient's. Follow-up appt scheduled for December 30 at 10:00am. Patient is to arrive at 9:30am to complete paperwork. Hospitalist notified of follow-up appt.
[2018-12-25 09:01] VITALS: BP 107/75; PULSE 62; RESP 16; TEMP 36.9; O2SAT 99
== END 2018-12-25 11:15 | disposition home or self-care (01) ==
LOC: ED 23:00 → MS3 12-20 03:04 → ICU 12-20 03:19 → MS3 12-20 16:19
PROVIDERS: Physician Assistant; Admitting Provider Internal Medicine; Emergency Provider Emergency Medicine; Referring Provider Internal Medicine; Visit Provider Internal Medicine
DX: B16.9 Acute hepatitis B without delta-agent and without hepatic coma (principal); B96.20 Unspecified Escherichia coli [E. coli] as the cause of diseases classified elsewhere; N30.00 Acute cystitis without hematuria; F19.11 Other psychoactive substance abuse, in remission; Z87.891 Personal history of nicotine dependence
CPT/HCPCS: 36415; 74177; 76705; 80048; 80053; 80074; 80076; 80307; 80320; 80329; 81001; 82140; 82977; 83516; 83690; 83735; 84703; 85025; 85027; 85610; 86038; 86225; 86235; 86308; 87077; 87086; 87088; 87186; 87529; 97802; 99251; 99285; 99406; J7030; J7040; Q9967; A4216; G0463; G0480; J2405

== ENCOUNTER → 2018-12-31 13:29 | Outpatient (CLI) | payer MEDICAID, SELFPAY ==
[2018-12-30 10:13] VITALS: BMI 20.2
[2018-12-31 13:38] LABS: Bacteria 0 SEEN /hpf (None Seen); Mucous, Urine 0 SEEN /hpf (<or=2+); Red Blood Cells-Urine 0 SEEN /hpf (0-5)
[2018-12-31 15:59] LABS: ALB/GLOB Ratio 0.9 RATIO (0.9-2.4); AST(SGOT) 289 U/L (15-37); Alanine Aminotransfer ALT/SGPT 496 U/L (13-56); Albumin, Serum 3.6 g/dL (3.2-5.0); Alkaline Phosphatase 131 U/L (45-117); Anion Gap 8 (5-15); BUN 13 mg/dL (7-18); BUN/Creat Ratio 19.6 RATIO (10-20); Calcium,Total 9.4 mg/dL (8.5-10.1); Chloride 102 mmol/L (98-107); Creatinine, Serum 0.66 mg/dL (0.55-1.02); EST Glomerular Filtration Rate 109 mL/min (>60); Est Glom Filt Rate - Afr Amer 132 mL/min (>60); Globulin 4.2 g/dL (2.2-4.2); Glucose 80 mg/dL (74-106); Potassium 4.3 mmol/L (3.5-5.1); Protein, Total 7.8 g/dL (6.4-8.2); Sodium Level 138 mmol/L (136-145)
[2018-12-31 16:07] LABS: Color, Urine Yellow (Yellow); Glucose, Dipstick Normal (Normal); Ketone-Dipstick Negative (Negative); Leukocyte Esterase-Dipstick 25 /ul (Negative); Nitrite-Dipstick Negative (Negative); Occult Blood-Urine Negative /ul (Negative); Protein-Dipstick Negative (Negative); Urine Bilirubin Dipstick Negative (Negative); Urine Clarity Clear (Clear); Urine Urobilinogen 4 mg/dl (Normal)
[2018-12-31 16:09] LABS: Squamous Epithelial Cells - UA 0-5 SEEN /hpf (5-10)
[2018-12-31 16:10] LABS: White Blood Cells 0-5 SEEN /hpf (0-5)
[2018-12-31 16:33] LABS: Absolute Lymphocyte Count 1.54 X10^3/ul (0.83-4.51); Absolute Neutrophil Count 3.2 X10^3/uL (2.0-7.7); Basophil# 0.12 X10^3/uL; Eosinophil# 0.17 X10^3/uL; Eosinophils% 2.9 % (0-5); Hematocrit 45.1 % (37-47); Hemoglobin 13.5 g/dl (12.0-15.0); Lymphocyte # 1.54 X10^3/ul (4.0); Lymphocyte % 26.1 % (19-41); Mean Corp Hgb Conc 29.9 g/gl (32-36); Mean Corpuscular Hgb 27.7 pg (27.0-32.0); Mean Corpuscular Volume 92.4 fL (81-99); Mean Platelet Vol. 10.6 fl (6.2-12.0); Monocyte# 0.79 X10^3/uL; Monocyte% 13.4 % (0-10); Neutrophil # 3.22 X10^3/uL (2.7-7.7); Neutrophil % 54.6 % (47-70); Platelet Count 345 K/mm3 (150-450); RBC Distribution Width CV 16.5 % (11.6-14.6); Red Blood Count 4.88 M/mm3 (4.2-5.4); White Blood Count 5.9 K/mm3 (4.4-11.0)
[2018-12-31 17:01] LABS: POSITIVE COUNT NO; POSITIVE DIFFERENTIAL NO; POSITIVE MORPHOLOGY NO
[2019-01-03 18:14] LABS: Hepatitis Be Ag Positive (Negative)
== END ==
PROVIDERS: Family Provider Internal Medicine; PCP Internal Medicine; Referring Provider Internal Medicine; Visit Provider Internal Medicine
DX: B19.10 Unspecified viral hepatitis B without hepatic coma (principal); N30.00 Acute cystitis without hematuria; B16.9 Acute hepatitis B without delta-agent and without hepatic coma
CPT/HCPCS: 36415; 80053; 81001; 85025; 87350

== ENCOUNTER → 2019-01-06 16:49 | Outpatient (CLI) | payer MEDICAID, SELFPAY ==
[2018-12-30 10:13] VITALS: BMI 20.2
[2019-01-06 17:38] LABS: AST(SGOT) 393 U/L (15-37); Alanine Aminotransfer ALT/SGPT 498 U/L (13-56); Albumin, Serum 3.9 g/dL (3.2-5.0); Alkaline Phosphatase 132 U/L (45-117); Bilirubin, Direct 1.81 mg/dL (0.00-0.30); Globulin 4.3 g/dL (2.2-4.2); Protein, Total 8.2 g/dL (6.4-8.2)
[2019-01-06 18:26] LABS: HIV - WCH Non-Reactive (Nonreactive)
[2019-01-08 12:42] LABS: Hepatitis Be Ag Positive (Negative)
[2019-01-09 22:02] LABS: Rapid Plasmin Reagin (RPR) NONREACTIVE (NONREACTIVE)
== END ==
PROVIDERS: Family Provider Internal Medicine; PCP Internal Medicine
DX: B16.9 Acute hepatitis B without delta-agent and without hepatic coma (principal)
CPT/HCPCS: 80076; 86592; 86703; 87350

== ENCOUNTER → 2019-02-11 13:55 | Outpatient (CLI) | payer MEDICAID, SELFPAY ==
[2018-12-30 10:13] VITALS: BMI 20.2
[2019-02-11 14:39] LABS: AST(SGOT) 118 U/L (15-37); Alanine Aminotransfer ALT/SGPT 210 U/L (13-56); Albumin, Serum 3.8 g/dL (3.2-5.0); Alkaline Phosphatase 89 U/L (45-117); Bilirubin, Direct 0.44 mg/dL (0.00-0.30); Globulin 3.6 g/dL (2.2-4.2); Protein, Total 7.4 g/dL (6.4-8.2)
== END ==
PROVIDERS: Family Provider Internal Medicine; PCP Internal Medicine
DX: B16.9 Acute hepatitis B without delta-agent and without hepatic coma (principal)
CPT/HCPCS: 36415; 80076

== ENCOUNTER → 2019-03-13 | Outpatient (CLI) | payer MEDICAID, SELFPAY ==
[2018-12-30 10:13] VITALS: BMI 20.2
[2019-03-13 14:13] LABS: AST(SGOT) 43 U/L (15-37); Alanine Aminotransfer ALT/SGPT 56 U/L (13-56); Albumin, Serum 3.7 g/dL (3.2-5.0); Alkaline Phosphatase 73 U/L (45-117); Bilirubin, Direct 0.18 mg/dL (0.00-0.30); Globulin 4.1 g/dL (2.2-4.2); Protein, Total 7.8 g/dL (6.4-8.2)
== END | disposition home or self-care (01) ==
LOC: LAB 13:25
PROVIDERS: Family Provider Internal Medicine; PCP Internal Medicine
DX: B16.9 Acute hepatitis B without delta-agent and without hepatic coma (principal)
CPT/HCPCS: 36415; 80076

== ENCOUNTER 2019-03-16 14:39 | Emergency (ER) | payer MEDICAID, SELFPAY ==
[2019-03-14 14:22] VITALS: BMI 22.1
[2019-03-16 14:42] VITALS: BP 117/76; PULSE 108; RESP 18; TEMP 36.7; O2SAT 97; BMI 22.1
--- NOTE | 2019-03-16 15:03 | ED.VISSUMM ---
- ER Visit Summary Date of Service: 03/16/19 Chief Complaint: Tooth pain History of Present Illness: The patient is a 33 F who presents for 2 days of severe tooth pain. Patient states she has a hospital left maxillary rear molar that is needs to be pulled. It is been severely painful for the last 2 days, with significant hot and cold sensitivity and pain with chewing, even if patient is chewing on the right side. Patient denies any fever. She does state it hurts to open her mouth. She also has noted gum swelling. Patient has history of depression and started Zoloft 2 days ago. She does smoke tobacco. She denies any other symptoms or medical issues. Physical Examination: Patient is afebrile and hemodynamically stable. Well-nourished well-developed sitting in bed in no obvious distress. No facial swelling noted. Neck is supple without any lymphadenopathy. No submandibular swelling or sublingual edema. Patient has diffuse dental decay and significant decay of the left rearmost maxillary molar with tenderness to percussion. Mild diffuse gum erythema and swelling without any focal abscess noted. No posterior oropharyngeal erythema, exudate or asymmetry of structures. No trismus. Remainder of exam unremarkable. Test Results: [] Emergency Department Course and Treatment: Patient was given naproxen for pain. She was given a prescription for penicillin for treatment of concern for early dental infection. She is currently trying to get into see a dentist to have the tooth pulled. She was given a list of dental clinics. No noted abscess that would be amenable to drainage. Patient was discharged home well-appearing and in no significant distress. Treatment Plan: [] Disposition: [] Impression: Odontalgia, dental infection This note was generated with [employer] dictation software. It may contain incorrect words, spelling, and punctuation that were not noted in review of the chart prior to signing ED Disposition - Plan for ED Patient: Disposition: Home or Assisted Living Instructions: ED Tooth Pain, ED Abscess Dental Prescriptions: Naproxen [Naprosyn] 500 mg PO BID PRN #20 tab Penicillin V Potassium 500 mg PO 4X/DAY #40 tab Referrals: Rayo Gonzalez MD [Primary Care Provider] - As Needed Additional Instructions: Please take the antibiotic for treatment of dental infection and use the naproxen up to twice daily as needed for pain. Please follow-up with a dentist as soon as possible to have the tooth evaluated and likely pulled. If you have any worsening of your condition or any new concerning symptoms, please return immediately to the emergency department for another evaluation.
[2019-03-16] MEDS: Naproxen 500 MG Tablet PO (15:29)
[2019-03-16 15:31] VITALS: PULSE 100; RESP 16; O2SAT 97
== END 2019-03-16 15:32 | disposition home or self-care (01) ==
PROVIDERS: Emergency Provider Emergency Medicine; Family Provider Internal Medicine; PCP Internal Medicine
DX: K04.7 Periapical abscess without sinus (principal); K08.89 Other specified disorders of teeth and supporting structures; F32.9 Major depressive disorder, single episode, unspecified; F17.200 Nicotine dependence, unspecified, uncomplicated; Z79.899 Other long term (current) drug therapy
CPT/HCPCS: 99283

== ENCOUNTER → 2019-04-18 | Outpatient (CLI) | payer MEDICAID, SELFPAY ==
[2019-04-18 13:56] VITALS: BMI 21.2
[2019-04-18 17:20] LABS: Amphetamine Urine VISTA POSITIVE (<1000 ng/mL); Barbiturate Urine VISTA NEGATIVE (< 200 ng/mL); Benzodiazepine Urine VISTA NEGATIVE (< 200 ng/mL); Cocaine Urine VISTA NEGATIVE (< 300 ng/mL); Ecstacy Urine VISTA NEGATIVE (< 500 ng/mL); Methadone Urine VISTA NEGATIVE (< 300 ng/mL); PCP Urine VISTA NEGATIVE (< 25 ng/mL); THC Urine VISTA POSITIVE (< 50 ng/mL); Vista UDS pH Range 6
[2019-04-21 09:57] LABS: Hepatitis Be Ag Negative (Negative)
== END | disposition home or self-care (01) ==
PROVIDERS: Family Provider Internal Medicine; PCP Internal Medicine; Referring Provider Internal Medicine; Visit Provider Internal Medicine
DX: F19.10 Other psychoactive substance abuse, uncomplicated (principal); B16.9 Acute hepatitis B without delta-agent and without hepatic coma
CPT/HCPCS: 36415; 80307; 87350

== ENCOUNTER → 2019-07-21 | Outpatient (CLI) | payer MEDICAID, SELFPAY ==
[2019-07-21 13:19] VITALS: BMI 21.2
--- NOTE | 2019-07-21 13:51 | RAD_ITS ---
STUDY: X-RAY - RIGHT WRIST REASON FOR EXAM: Female, 33 years old. Chronic bilateral wrist pain. TECHNIQUE: 3 view(s) of the wrist were obtained. COMPARISON: None. FINDINGS: Normal visualized distal radius and ulna. Normal radiocarpal articulation. Normal distal radioulnar articulation. Normal carpal bones. Normal carpal articulations. Normal carpometacarpal articulation of the thumb. Normal second through fifth carpometacarpal articulations. Normal visualized metacarpal bones. The soft tissue structures are unremarkable. RAD/Wrist min 3 Views IMPRESSION: Normal x-ray examination of the wrist. Electronically Signed: Forest Gallegos, at 15:49 EDT , Service support ,
== END | disposition home or self-care (01) ==
LOC: HPRAD 13:50
PROVIDERS: Family Provider Internal Medicine; PCP Internal Medicine; Visit Provider Physician Assistant
DX: M25.531 Pain in right wrist (principal)
CPT/HCPCS: 73110

== ENCOUNTER → 2019-09-03 | Outpatient (CLI) | payer MEDICAID, SELFPAY ==
[2019-07-21 13:19] VITALS: BMI 21.2
[2019-08-20 16:13] VITALS: BMI 21.2
--- NOTE | 2019-09-03 15:17 | NEURO ---
NCS and/or EMG Patient Report Ordering Doctor: Claude Gaines DATE OF SERVICE: 09/03/19 Tenisha Hoskins is a 33-year-old female presents for electrodiagnostic testing of the right upper limb. She has complaints of numbness and tingling in the right hand. Next Electrodiagnostic findings: Right median motor nerve demonstrates normal distal latency, amplitude and conduction velocity. Normal right ulnar motor response. Normal right median and ulnar F waves. Normal sensory responses. Needle EMG, all muscles tested in the right upper limb showed no evidence of denervation with normal motor unit action potentials. Next Electrodiagnostic impression: This is a normal electrodiagnostic study of the right upper limb. There is no electrodiagnostic evidence for peripheral neuropathy or cervical radiculopathy. If there are any further questions, please do not hesitate to contact me
== END | disposition home or self-care (01) ==
LOC: PSN 14:04
PROVIDERS: Family Provider Internal Medicine; PCP Internal Medicine; Referring Provider Physician Assistant; Visit Provider Physician Assistant
DX: R20.0 Anesthesia of skin (principal); R20.2 Paresthesia of skin
CPT/HCPCS: 95886; 95910

== ENCOUNTER → 2019-11-14 12:19 | Outpatient (CLI) | payer MEDICAID, SELFPAY ==
[2019-09-18 13:59] VITALS: BMI 21.2
--- NOTE | 2019-11-14 13:00 | MRI_ITS ---
STUDY: MRI CERVICAL SPINE WITHOUT CONTRAST REASON FOR EXAM: Female, 33 years old. RIGHT hand pain ,swelling, finger tingling TECHNIQUE: Standardized fat and water weighted pulse sequences were obtained in the sagittal and axial planes. COMPARISON: None FINDINGS: Normal foramen magnum and brainstem-cervical cord junction. Normal craniovertebral junction. Normal anterior atlantoaxial articulation. Normal odontoid process. Normal cervical lordosis. Normal vertebral bodies and posterior osseous elements. C2-3: Normal endplates. Normal disc height, signal and morphology. Normal central canal and intervertebral neural foramina. C3-4: Normal endplates. Normal disc height, signal and morphology. Normal central canal and intervertebral neural foramina. C4-5: Normal endplates. Normal disc height, signal and morphology. Normal central canal and intervertebral neural foramina. C5-6: Mild broad disc osteophyte complex produces mild spinal stenosis but no neural foraminal stenosis. C6-7: Normal endplates. Normal disc height, signal and morphology. Normal central canal and intervertebral neural foramina. C7-T1: Normal endplates. Normal disc height, signal and morphology. Normal central canal and intervertebral neural foramina. Normal cervical cord. Normal visualized soft tissue structures. MRI/Spine Cervical (Routine) IMPRESSION: Mild focal degenerative disc disease at C5/C6 as described above. Electronically Signed: Pierre Ortiz MD at 18:26 EST Tel , Service support ,
== END ==
PROVIDERS: Family Provider Internal Medicine; PCP Internal Medicine; Referring Provider Psychiatry & Neurology Neurology; Visit Provider Psychiatry & Neurology Neurology
DX: M54.12 Radiculopathy, cervical region (principal)
CPT/HCPCS: 72141

== ENCOUNTER → 2020-07-19 | Outpatient (CLI) | payer MEDICAID, SELFPAY ==
[2020-07-19 10:55] VITALS: BMI 21.2
[2020-07-19 12:57] LABS: HIV - WCH Non-Reactive (Nonreactive); Hepatitis B Surface Antigen Non-Reactive (Nonreactive)
[2020-07-19 13:16] LABS: Chlamydia Trachomatis by PCR Negative (Negative); Neisserai gonorrhoeae by PCR Negative (Negative); Probe Check PASS; Sample Adequacy Control PASS; Specimen Processing Control PASS
[2020-07-21 03:07] LABS: HCV Quant. RNA PCR HCV Not Detected IU/mL (.)
[2020-07-21 09:15] LABS: HSV 1 IgG > 62.20 index (0.00-0.90)
[2020-07-22 03:06] LABS: Chlamydia By Nucleic Acid AMP Negative (Negative)
[2020-07-22 05:28] LABS: Rapid Plasmin Reagin (RPR) NONREACTIVE (NONREACTIVE)
[2020-07-22 10:12] LABS: Gonococcus By Nucleic Acid AMP Negative (Negative)
[2020-07-26 16:08] LABS: HPV Genotype 16, Aptima Negative (Negative)
[2020-07-27 04:47] LABS: HPV APTIMA, High Risk Positive (Negative); HPV Genotype 18,45 Aptima Negative (Negative)
== END | disposition home or self-care (01) ==
PROVIDERS: PCP Internal Medicine; Referring Provider Nurse Practitioner Women's Health; Visit Provider Nurse Practitioner Women's Health
DX: Z11.3 Encounter for screening for infections with a predominantly sexual mode of transmission (principal); Z12.4 Encounter for screening for malignant neoplasm of cervix
CPT/HCPCS: 36415; 86592; 86695; 86696; 86703; 87340; 87491; 87522; 87591; 87624; 88175; G0145

== ENCOUNTER → 2020-07-21 11:27 | Outpatient (CLI) | payer MEDICAID, SELFPAY ==
[2020-07-21 11:09] VITALS: BMI 21.2
[2020-07-21 12:36] LABS: Absolute Neutrophil Count 3.4 X10^3/uL (2.0-7.7); Basophil# 0.05 X10^3/uL; Basophil% 0.9 % (0-1); Eosinophil# 0.16 X10^3/uL; Eosinophils% 2.8 % (0-5); Hematocrit 39.8 % (37-47); Hemoglobin 12.4 g/dL (12.0-15.0); Mean Corp Hgb Conc 31.2 g/dL (32-36); Mean Corpuscular Hgb 28.4 pg (27.0-32.0); Mean Corpuscular Volume 91.3 fL (81-99); Mean Platelet Vol. 9.3 fl (6.2-12.0); Monocyte# 0.69 X10^3/uL; Monocyte% 12.2 % (0-10); NRBC Flagged by Analyzer 0 % (0-5); Neutrophil # 3.44 X10^3/uL (2.7-7.7); Neutrophil % 60.9 % (47-70); Platelet Count 304 K/mm3 (150-450); RBC Distribution Width SD 42.8 fl (35.1-43.9); Red Blood Count 4.36 M/mm3 (4.2-5.4); White Blood Count 5.7 K/mm3 (4.4-11.0)
[2020-07-21 13:18] LABS: ALB/GLOB Ratio 0.9 RATIO (0.9-2.4); AST(SGOT) 18 U/L (15-37); Alanine Aminotransfer ALT/SGPT 20 U/L (13-56); Albumin, Serum 3.6 g/dL (3.2-5.0); Alkaline Phosphatase 75 U/L (45-117); Anion Gap 4 (5-15); BUN 19 mg/dL (7-18); BUN/Creat Ratio 22.3 RATIO (10-20); Calcium,Total 9.1 mg/dL (8.5-10.1); Chloride 105 mmol/L (98-107); Creatinine, Serum 0.85 mg/dL (0.55-1.02); EST Glomerular Filtration Rate 81 mL/min (>60); Est Glom Filt Rate - Afr Amer 98 mL/min (>60); Glucose 72 mg/dL (74-106); Potassium 3.8 mmol/L (3.5-5.1); Protein, Total 7.6 g/dL (6.4-8.2); Sodium Level 139 mmol/L (136-145); Thyroid Stim Hormone (TSH) 2.17 uIU/mL (0.358-3.74)
== END ==
PROVIDERS: PCP Internal Medicine; Referring Provider Internal Medicine; Visit Provider Internal Medicine
DX: F41.9 Anxiety disorder, unspecified (principal); F32.9 Major depressive disorder, single episode, unspecified
CPT/HCPCS: 36415; 80053; 84439; 84443; 85025

== ENCOUNTER 2021-03-18 12:49 | Emergency (ER) | payer MEDICAID, SELFPAY ==
[2020-07-21 11:09] VITALS: BMI 21.2
[2021-03-18 12:49] VITALS: BP 111/61; PULSE 81; RESP 16; TEMP 35.9; O2SAT 99; BMI 27.7
--- NOTE | 2021-03-18 13:28 | RAD_ITS ---
STUDY: X-RAY - RIGHT WRIST REASON FOR EXAM: Female, 35 years old. Pain TECHNIQUE: 3 view(s) of the wrist were obtained. COMPARISON: Comparison is made with prior study dated 07/21/2019. FINDINGS: Normal visualized distal radius and ulna. Normal radiocarpal articulation. Normal distal radioulnar articulation. Normal carpal bones. Normal carpal articulations. Normal carpometacarpal articulation of the thumb. Normal second through fifth carpometacarpal articulations. Normal visualized metacarpal bones. The soft tissue structures are unremarkable. RAD/Wrist min 3 Views IMPRESSION: Normal x-ray examination of the wrist. Electronically Signed: Forest Gallegos MD at 13:42 EDT , Service support ,
--- NOTE | 2021-03-18 13:55 | ED.DCSUM_ITS ---
- ER Visit Summary Date of Service: 03/18/21 Chief Complaint: Right wrist pain History of Present Illness: The patient is a 35 F presenting with right wrist pain. Patient states this has been ongoing for several years. She has been worked up and had multiple tests done. She does use her hand repetitively at work. She worked last night and this exacerbated her symptoms. She denies fever or other complaints. Physical Examination: Vitals are stable. Patient is afebrile. Alert no acute distress. HEENT exam is unremarkable. Neck is supple. Lungs are clear and equal bilaterally. Heart is regular rate and rhythm. Extremities right wrist tenderness with active full range of motion. Normal pulses. No erythema or warmth. Skin is warm and dry. No focal neurologic deficit. Remainder of exam is unremarkable. Emergency Department Course and Treatment: Right wrist x-ray read by myself and radiology shows normal x-ray examination of the wrist. Patient states she has wrist splints at home. She is given a short course of tramadol. Advised return to the ED for worsening complaints. Advised to follow-up with her primary care physician. Disposition: Discharge home Impression: Acute on chronic right wrist pain This note was generated with [employer] dictation software. It may contain incorrect words, spelling, and punctuation that were not noted in review of the chart prior to signing ED Disposition - Plan for ED Patient: Referrals: Rayo Gonzalez MD [Primary Care Provider] -
--- NOTE | 2021-03-18 13:59 | ED.DEP ---
ED Disposition - Plan for ED Patient: Instructions: ED Wrist Sprain Prescriptions: traMADol [Ultram] 50 mg PO Q6H PRN PRN 3 Days #10 tablet PRN Reason: Pain Prescription Printed Referrals: Rayo Gonzalez MD [Primary Care Provider] -
== END 2021-03-18 14:50 | disposition home or self-care (01) ==
LOC: ED 13:58
PROVIDERS: Emergency Provider Emergency Medicine; PCP Internal Medicine
DX: M25.531 Pain in right wrist (principal); G89.29 Other chronic pain; Z72.0 Tobacco use
CPT/HCPCS: 73110; 99282

== ENCOUNTER 2021-09-30 00:08 | Emergency (ER) | payer MEDICAID, SELFPAY ==
[2021-09-30 00:09] VITALS: BP 123/79; PULSE 92; RESP 18; TEMP 36.9; O2SAT 100; BMI 27.6
--- NOTE | 2021-09-30 00:31 | RAD_ITS ---
STUDY: X-RAY CHEST REASON FOR EXAM: Female, 35 years old. Dyspnea TECHNIQUE: Single AP portable view of the chest. COMPARISON: None. FINDINGS: The lungs are clear and expanded. There is no demonstrated pleural abnormality. Normal size heart. Normal mediastinum and yamilka. Normal visualized pulmonary arteries. Normal visualized aortic arch and descending thoracic aorta. Normal visualized thoracic spine. Normal visualized ribs, clavicles, and shoulders. There is no demonstrated abnormality of the visualized soft tissue structures of the upper abdomen. RAD/Chest 1 View (Portable) IMPRESSION: Normal x-ray examination of the chest. Electronically Signed: Maggie Sung MD at 1:54 EDT Tel , Service support ,
--- NOTE | 2021-09-30 00:33 | EX.ED.DYSGE1 ---
HPI History of Present Illness Chief Complaint: General Illness Informant: patient Onset/Context/Timing Onset: Yesterday Context: Gradual Onset Timing: Continuous Quality: Aching Location: Generalized Worsened by: Nothing Relieved by: Nothing Narrative Narrative: Patient presents with general body aches that began yesterday. Patient states she feels achy all over. Patient states she also has a metallic taste in her mouth comes and goes. Patient states that when she has that she feels nauseated. Patient denies any vomiting. Patient denies any cough. Patient denies any chest pain. Patient denies any fevers or chills. Patient denies any sore throat, rhinorrhea, or ear pain. Patient states nothing makes her symptoms better or worse. PFSH [facility] Medical History Bipolar 1 disorder Depression Hx of jaundice Home Medications venlafaxine 150 mg capsule,extended release 24 hr 150 mg PO DAILY #90 cap 01/14/21 [Rx Last Taken Unknown] Allergy/AdvReac Type Severity Reaction Status Date / Time ibuprofen Allergy Severe Hives Verified 09/30/21 00:08 Family History (System 07/11/19 @ 15:32 by Andie Cerrato) Grandfather Cancer lung Diabetes Unknown Diabetes Father Hypertension Surgical History H/O tubal ligation History of 2 sections Social History Smoking Status: Current every day smoker tobacco type: cigarettes Tobacco: How many years used: 10 Electronic Cigarette Use: with nicotine alcohol intake: former year quit: 2017 substance use type: does not use caffeine: Yes what type of physical activity do you participate in: none seatbelt use: always do you feel safe at home: Yes additional social history: single- works at [employer] ED Constitutional Constitutional ED: Denies chills or fever(s) Eyes Eyes: Denies blurry vision or change in vision ENT ENT ED: Denies rhinorrhea or sore throat Cardiovascular Cardiovascular: Denies chest pain or palpitations Respiratory/Chest Respiratory/Chest: Reports dyspnea; Denies cough Gastrointestinal Gastrointestinal: Reports nausea; Denies vomiting Genitourinary Genitourinary ED: Denies dysuria or hematuria Musculoskeletal Musculoskeletal: Reports myalgias; Denies back pain or neck pain Integumentary Denies abscess or rash Neurologic Neurologic: Denies headache(s) or weakness Allergic/Immunologic Allergic/Immunologic ED: Denies mouth swelling or urticaria EXAM Physical Exam Const Vital Signs: 09/30/21 00:09 09/30/21 00:11 09/30/21 01:37 Temperature 98.4 F Temperature Source Oral Pulse Rate 92 91 Respiratory Rate 18 16 Respiratory Effort Normal Non-Labored Respiratory Pattern Normal Blood Pressure 123/79 H 114/86 H Blood Pressure Mean 93 95 Pulse Ox 100 100 Oxygen Delivery Method Room Air Room Air Positive well nourished and well developed General Appearance ED: well developed HEENT Reports moist mucous membranes Neck supple and no JVD Resp normal respiratory effort and clear to auscultation bilaterally Cardio regular rate, regular rhythm and no murmurs GI normal to inspection, nondistended, normoactive bowel sounds and non-tender Palpation: soft Extremity normal to inspection General Extremety ED: Negative for edema or tenderness General Extremity: Negative for edema Neuro oriented x3, CN's II-XII intact bilaterally and no sensory deficits noted Sensorium / Orientation: alert Motor Exam: strength 5/5 throughout Psych mental status grossly normal Skin no rashes or lesions noted MDM MDM MDM Narrative Medical decision making narrative: CBC and comprehensive metabolic profile were within normal limits. Portable 1 view chest x-ray was obtained. On my interpretation, lung hernandez are clear. There is normal cardiac silhouette. Bony thorax is normal. There is no acute process noted. Radiologist also interpreted the x-ray and agrees. COVID-19 rapid antigen was obtained and was negative. Patient was advised of her findings. Patient was instructed to follow-up with her primary care physician in 5 to 7 days. Patient understood and was agreeable with the plan. All questions were answered. Lab Data Attestation: I reviewed the patient's lab results. Labs: Laboratory Results - last 24 hr 09/30/21 09/30/21 00:45 00:45 WBC 5.8 RBC 4.10 L Hgb 11.4 L Hct 36.2 L MCV 88.3 MCH 27.8 MCHC 31.5 L RDW Std Deviation 44.8 H RDW Coeff of Tavo 13.9 Plt Count 243 MPV 9.3 Immature Gran % (Auto) 0.200 Neut % (Auto) 56.2 Lymph % (Auto) 28.4 Pitkin % (Auto) 13.0 H Eos % (Auto) 1.9 Baso % (Auto) 0.3 Absolute Neuts (auto) 3.3 Absolute Lymphs (auto) 1.64 Nucleated RBC % 0 Sodium 139 Potassium 3.6 Chloride 106 Carbon Dioxide 29.0 Anion Gap 4 L BUN 14 Creatinine 0.76 Estim Creat Clear Calc 74.21 Est GFR (MDRD) Af Amer 112 Est GFR (MDRD) Non-Af 92 BUN/Creatinine Ratio 18.5 Glucose 106 Calcium 8.9 Total Bilirubin 0.20 AST 18 ALT 18 Alkaline Phosphatase 75 Total Protein 6.7 Albumin 3.0 L Globulin 3.7 Albumin/Globulin Ratio 0.8 L Radiography Diagnostic Testing: Clinical Impression(s) from Imaging Studies Chest X-Ray 09/30/21 00:31 IMPRESSION: Normal x-ray examination of the chest. Electronically Signed: Maggie Sung MD at 1:54 EDT Tel , Service support , Discharge Plan Triage Chief Complaint: General Illness ED Provider: Tom Carmichael Dx/Rx/DC Orders Clinical Impression: Viral illness Instructions: ED Viral Syndrome (Adult) Prescriptions: No Action venlafaxine 150 mg capsule,extended release 24hr 150 mg PO DAILY Qty: 90 RF: 3 Stand Alone Forms: ED Work / School Excuse Primary Care Provider: Rayo Gonzalez Referrals: Rayo Gonzalez MD [Primary Care Provider] - 5-7 Days Disposition Disposition: Home, Self Care
[2021-09-30 01:29] LABS: Absolute Lymphocyte Count 1.64 X10^3/uL (0.83-4.51); Absolute Neutrophil Count 3.3 X10^3/uL (2.0-7.7); Basophil# 0.02 X10^3/uL; Basophil% 0.3 % (0-1); Eosinophil# 0.11 X10^3/uL; Eosinophils% 1.9 % (0-5); Hematocrit 36.2 % (37-47); Hemoglobin 11.4 g/dL (12.0-15.0); Lymphocyte # 1.64 X10^3/ul (0.83-4.51); Lymphocyte % 28.4 % (19-41); Mean Corp Hgb Conc 31.5 g/dL (32-36); Mean Corpuscular Hgb 27.8 pg (27.0-32.0); Mean Corpuscular Volume 88.3 fL (81-99); Mean Platelet Vol. 9.3 fl (6.2-12.0); Monocyte# 0.75 X10^3/uL; NRBC Flagged by Analyzer 0 % (0-5); Neutrophil # 3.25 X10^3/uL (2.7-7.7); Neutrophil % 56.2 % (47-70); Platelet Count 243 K/mm3 (150-450); RBC Distribution Width CV 13.9 % (11.6-14.6); RBC Distribution Width SD 44.8 fl (35.1-43.9); White Blood Count 5.8 K/mm3 (4.4-11.0)
[2021-09-30 01:37] VITALS: BP 114/86; PULSE 91; RESP 16; O2SAT 100
[2021-09-30 01:41] LABS: ALB/GLOB Ratio 0.8 RATIO (0.9-2.4); AST(SGOT) 18 U/L (15-37); Alanine Aminotransfer ALT/SGPT 18 U/L (13-56); Alkaline Phosphatase 75 U/L (45-117); Anion Gap 4 (5-15); BUN 14 mg/dL (7-18); BUN/Creat Ratio 18.5 RATIO (10-20); Calcium,Total 8.9 mg/dL (8.5-10.1); Chloride 106 mmol/L (98-107); Creatinine, Serum 0.76 mg/dL (0.55-1.02); EST Glomerular Filtration Rate 92 mL/min (>60); Est Glom Filt Rate - Afr Amer 112 mL/min (>60); Estimated Creatinine Clearance 74.21 ml/min; Globulin 3.7 g/dL (2.2-4.2); Glucose 106 mg/dL (74-106); Potassium 3.6 mmol/L (3.5-5.1); Protein, Total 6.7 g/dL (6.4-8.2); Sodium Level 139 mmol/L (136-145)
[2021-09-30 02:42] VITALS: BP 115/42; PULSE 78; RESP 16; O2SAT 95
== END 2021-09-30 02:46 | disposition home or self-care (01) ==
PROVIDERS: Emergency Provider Emergency Medicine; PCP Internal Medicine
DX: B34.9 Viral infection, unspecified (principal); F31.9 Bipolar disorder, unspecified; F17.210 Nicotine dependence, cigarettes, uncomplicated; Z79.899 Other long term (current) drug therapy
CPT/HCPCS: 71045; 80053; 85025; 87426; 99283; A4216

== ENCOUNTER → 2021-10-19 | Outpatient (CLI) | payer MEDICAID, SELFPAY ==
[2021-10-19 20:56] LABS: Mucous, Urine 0 SEEN /hpf (<or=2+); Red Blood Cells-Urine 0 SEEN /hpf (0-5)
[2021-10-19 21:01] LABS: Color, Urine Yellow (Yellow); Glucose, Dipstick Normal (Normal); Ketone-Dipstick 5 mg/dl (Negative); Leukocyte Esterase-Dipstick 500 /ul (Negative); Nitrite-Dipstick Negative (Negative); Occult Blood-Urine 10 /ul (Negative); Protein-Dipstick 30 mg/dl (Negative); Specific Gravity, Urine 1.025 (1.002-1.030); Urine Bilirubin Dipstick Negative (Negative); Urine Clarity Sl. Cloudy (Clear); Urine Urobilinogen 1 mg/dl (Normal)
[2021-10-19 21:07] LABS: White Blood Cells >100 SEEN /hpf (0-5)
[2021-10-19 21:10] LABS: Bacteria 1+ /hpf (None Seen); Squamous Epithelial Cells - UA 5-10 SEEN /hpf (5-10)
[2021-10-19 23:24] LABS: Chlamydia Trachomatis by PCR Negative (Negative); Neisserai gonorrhoeae by PCR Negative (Negative); Probe Check PASS; Sample Adequacy Control PASS; Specimen Processing Control PASS
== END | disposition home or self-care (01) ==
PROVIDERS: PCP Internal Medicine; Visit Provider Internal Medicine
DX: N94.10 Unspecified dyspareunia (principal)
CPT/HCPCS: 81001; 87491; 87591

== ENCOUNTER → 2021-11-02 15:21 | Outpatient (CLI) | payer MEDICAID, SELFPAY | PROVIDERS: PCP Internal Medicine; Visit Provider Internal Medicine | DX: N94.10 Unspecified dyspareunia (principal) | CPT/HCPCS: 87086; 87088 ==

== ENCOUNTER 2022-01-11 14:28 | Outpatient (CLI) | payer MEDICAID, SELFPAY ==
[2022-01-16 17:57] LABS: HPV APTIMA, High Risk Negative (Negative)
== END 2022-01-11 23:59 | disposition home or self-care (01) ==
LOC: LABSPEC 02-08 14:28
PROVIDERS: PCP Internal Medicine; Visit Provider Nurse Practitioner Women's Health
DX: N94.10 Unspecified dyspareunia (principal)
CPT/HCPCS: 87070; 87205; 87624; 88175; G0145

== ENCOUNTER 2022-06-18 15:00 | Emergency (ER) | payer MEDICAID, SELFPAY ==
[2022-06-18 15:01] VITALS: BP 130/84; PULSE 101; RESP 16; TEMP 36.6; O2SAT 98; BMI 26.9
--- NOTE | 2022-06-18 15:34 | EDS_ITS ---
HPI History of Present Illness Chief Complaint: Dental Detail of Chief Complaint: Dental pain and facial swelling that started today Informant: patient Narrative Narrative: Patient presents the emergency department with complaint of facial swelling that started today when she woke up. Patient states she has poor dentition and has been seeing a dentist in [place]. She denies any fevers. She describes mild pain in her left upper teeth. Patient has not taken anything for pain but typically ibuprofen helps her. PFSH PFSH Medical History Bipolar 1 disorder Depression Dyspareunia Hx of jaundice Pain in female genitalia on intercourse Home Medications metronidazole 500 mg tablet 500 mg PO BID #14 tabs 01/11/22 [Rx Last Taken Unknown] venlafaxine 150 mg capsule,extended release 24 hr 150 mg PO DAILY #90 caps 03/10/22 [Rx Last Taken Unknown] venlafaxine 75 mg capsule,extended release 24 hr 75 mg PO QAM #90 caps 03/10/22 [Rx Last Taken Unknown] clindamycin HCl 300 mg capsule (Cleocin HCl) 300 mg PO Q6H #40 CAPSULES 06/18/22 [Rx Last Taken Unknown] Allergy/AdvReac Type Severity Reaction Status Date / Time ibuprofen Allergy Severe Hives Verified 01/11/22 09:20 acetaminophen [From Tylenol] AdvReac Other Verified 06/18/22 15:01 Family History Grandfather Cancer lung Diabetes Unknown Diabetes Father Hypertension Surgical History H/O tubal ligation History of 2 sections Social History Smoking Status: Current every day smoker tobacco type: cigarettes Tobacco: How many years used: 10 Electronic Cigarette Use: with nicotine alcohol intake: former year quit: 2017 substance use type: does not use caffeine: Yes what type of physical activity do you participate in: none seatbelt use: always do you feel safe at home: Yes additional social history: single- works at [employer] ROS ROS ED Review of Systems ROS Unobtainable: other Constitutional Constitutional ED: Reports lethargy; Denies chills, fever(s), sweats or weight loss Eyes Eyes: Denies blurry vision, change in vision or diplopia ENT ENT ED: Reports other Details: Dental pain and left facial swelling ; Denies rhinorrhea or sore throat Cardiovascular Cardiovascular: Denies chest pain, orthopnea or racing heartbeat Respiratory/Chest Respiratory/Chest: Reports dyspnea and dyspnea on exertion; Denies cough, orthopnea or sputum Gastrointestinal Gastrointestinal: Denies abdominal pain, diarrhea, nausea or vomiting Genitourinary Genitourinary ED: Denies dysuria, hematuria or urinary frequency Musculoskeletal Musculoskeletal: Denies arthralgias, back pain, myalgias or neck pain Integumentary Denies abscess, Abrasions or rash Neurologic Neurologic: Denies headache(s) or weakness Psychiatric Psychiatric: Denies anxiety, depression or suicidal thoughts Endocrine Endocrinology: Denies polydipsia, polyphagia or polyuria Hematologic/Lymphatic Hematologic/Lymphatic: Denies easy bleeding, easy bruising or lymphadenopathy Allergic/Immunologic Allergic/Immunologic ED: Denies mouth swelling, tongue swelling or urticaria EXAM Physical Exam Const Vital Signs: 06/18/22 15:01 Temperature 97.9 F Temperature Source Temporal Pulse Rate 101 H Respiratory Rate 16 Blood Pressure 130/84 H Blood Pressure Mean 99 Pulse Ox 98 Oxygen Delivery Method Room Air Positive well nourished and well developed General Appearance ED: well developed and NAD HEENT Reports TM's clear and moist mucous membranes HEENT Narrative: Tissue-patient has a broken and carried tooth #13. Adjacent to the gingiva he she has a well-formed abscess. Patient has diffuse left upper facial swelling without any evidence of cellulitis. No trismus on exam. normocephalic and atraumatic; Negative for trauma or tenderness Tympanic Membrane ED: Yes TM's clear Eyes PERRL and EOMs intact bilaterally General Eye ED: Negative for pale conjunctiva or scleral icterus Neck no lymphadenopathy, supple and no JVD General: Negative for tenderness Chest Wall inspection of chest normal and palpation of chest normal Chest: Negative for tenderness Resp normal respiratory effort and clear to auscultation bilaterally Effort and Inspection: Negative for respiratory distress or pain with movement Auscultation: Negative for rhonchi, wheezes or diminished lung sounds Cardio regular rate, regular rhythm, S1 normal heart sound, S2 normal heart sound and no murmurs Peripheral Pulses: pulses 2+ throughout GI normal to inspection, nondistended, normoactive bowel sounds, soft to palpation, non-tender, non-distended and no masses Back/Spine no CVA tenderness and no thoracic nor lumbar tenderness Extremity normal to inspection General Extremety ED: Negative for edema General Extremity: Negative for edema Neuro oriented x3, CN's II-XII intact bilaterally, no sensory deficits noted and gait normal Sensorium / Orientation: awake, alert, oriented to person, oriented to place and oriented to time Motor Exam: strength 5/5 throughout and strength abnormal Psych mental status grossly normal Skin no rashes or lesions noted and no wounds MDM MDM MDM Narrative Medical decision making narrative: Patient was offered incision and drainage of patient was started on clindamycin given first dose in the emergency department. She does not anything for pain. She will follow-up with her dentist. Abscess to which she agreed. I was able to get an 18-gauge needle make a stab incision large amount of free-flowing purulent debris was expressed. Discharge Plan Triage Chief Complaint: Dental ED Provider: Lucía Ohara Dx/Rx/DC Orders Clinical Impression: Abscess, dental, Dental caries Instructions: Dental Abscess Prescriptions: New clindamycin HCl [Cleocin HCl] 300 MG capsule 300 mg PO Q6H Qty: 40 0RF No Action metronidazole 500 mg tablet 500 mg PO BID Qty: 14 0RF venlafaxine 150 mg capsule,extended release 24hr 150 mg PO DAILY Qty: 90 3RF venlafaxine 75 mg capsule,extended release 24hr 75 mg PO QAM Qty: 90 2RF Rx Instructions: Take with 150 mg for a total daily dose of 225 mg Primary Care Provider: Rayo Gonzalez Referrals: Rayo Gonzalez MD [Primary Care Provider] - Activity Restrictions/Additional Instructions: See your dentist at the earliest possible time Disposition Disposition: Home, Self Care
[2022-06-18] MEDS: Clindamycin HCl 150 MG Capsule 300 MG PO (15:51)
[2022-06-18 15:52] VITALS: PULSE 90; RESP 18; O2SAT 98
== END 2022-06-18 15:53 | disposition home or self-care (01) ==
LOC: ED 15:39
PROVIDERS: Emergency Provider Emergency Medicine; PCP Internal Medicine; Visit Provider Emergency Medicine
DX: K04.7 Periapical abscess without sinus (principal); F31.9 Bipolar disorder, unspecified; K02.9 Dental caries, unspecified; F17.210 Nicotine dependence, cigarettes, uncomplicated; Z79.899 Other long term (current) drug therapy
CPT/HCPCS: 41800; 99283

== ENCOUNTER → 2022-08-22 | Outpatient (CLI) | payer MEDICAID, SELFPAY ==
[2022-08-22 12:11] LABS: Absolute Lymphocyte Count 1.31 X10^3/uL (0.83-4.51); Absolute Neutrophil Count 3.4 X10^3/uL (2.0-7.7); Basophil# 0.04 X10^3/uL; Basophil% 0.7 % (0-1); Hematocrit 41.1 % (37-47); Hemoglobin 12.6 g/dL (12.0-15.0); Lymphocyte # 1.31 X10^3/ul (0.83-4.51); Lymphocyte % 24.3 % (19-41); Mean Corp Hgb Conc 30.7 g/dL (32-36); Mean Corpuscular Hgb 28.3 pg (27.0-32.0); Mean Corpuscular Volume 92.4 fL (81-99); Mean Platelet Vol. 9.6 fl (6.2-12.0); Monocyte# 0.62 X10^3/uL; Monocyte% 11.5 % (0-10); NRBC Flagged by Analyzer 0 % (0-5); Neutrophil # 3.41 X10^3/uL (2.7-7.7); Neutrophil % 63.3 % (47-70); Platelet Count 264 K/mm3 (150-450); RBC Distribution Width CV 13.3 % (11.6-14.6); RBC Distribution Width SD 45.1 fl (35.1-43.9); Red Blood Count 4.45 M/mm3 (4.2-5.4); White Blood Count 5.4 K/mm3 (4.4-11.0)
[2022-08-22 12:25] LABS: ALB/GLOB Ratio 0.9 RATIO (0.9-2.4); AST(SGOT) 15 U/L (15-37); Alanine Aminotransfer ALT/SGPT 21 U/L (13-56); Albumin, Serum 3.6 g/dL (3.2-5.0); Alkaline Phosphatase 67 U/L (45-117); Anion Gap 6 (5-15); BUN 17 mg/dL (7-18); BUN/Creat Ratio 19.4 RATIO (10-20); Chloride 106 mmol/L (98-107); Creatinine, Serum 0.88 mg/dL (0.55-1.02); EST Glomerular Filtration Rate 77 mL/min (>60); Est Glom Filt Rate - Afr Amer 93 mL/min (>60); Globulin 3.8 g/dL (2.2-4.2); Glucose 90 mg/dL (74-106); Potassium 3.9 mmol/L (3.5-5.1); Protein, Total 7.4 g/dL (6.4-8.2); Sodium Level 141 mmol/L (136-145)
== END | disposition home or self-care (01) ==
LOC: BIMLAB 08:46
PROVIDERS: PCP Internal Medicine; Referring Provider Internal Medicine; Visit Provider Internal Medicine
DX: F41.9 Anxiety disorder, unspecified (principal); F32.9 Major depressive disorder, single episode, unspecified
CPT/HCPCS: 36415; 80053; 85025

== ENCOUNTER 2022-09-10 14:59 | Emergency (ER) | payer MEDICAID, SELFPAY ==
[2022-09-10 15:00] VITALS: BP 119/85; PULSE 84; RESP 14; TEMP 36.3; O2SAT 97; BMI 27.7
--- NOTE | 2022-09-10 15:37 | ED.VIS.FALL ---
HPI HPI - Fall History of Present Illness Chief Complaint: Fall Informant: patient Occured/Mechanism Occurred: Today Fall down steps #: Unknown number of steps Pain/Injury Location: Occiput and cervical paraspinal muscles Pain Location: head and neck Quality of Pain: Aching Worsened by: Movement Relieved by: Nothing Associated Symptoms Associated Symptoms: Positive for Parasthesias; Negative for Weakness, Loss of function, Inability to ambulate, Loss of consciousness or Amnesia Narrative Narrative: Patient presents with a fall that occurred today. Patient states she was going down the steps when she fell. Patient does not remember if she passed out and fell or if she fell and then hit her head. Patient admits to some lightheadedness since the fall but denies any lightheadedness or dizziness before the fall. Patient does not know how many steps she fell down. Patient states the pain is over the occipital scalp and upper cervical spine. Patient describes her pain as aching. Patient states it is worse with movement. Patient denies any weakness. Patient admits to paresthesias in her upper extremities that are chronic. Patient states there is no change to this. PFSH PFSH Medical History Bipolar 1 disorder Depression Dermatitis Dyspareunia Hx of jaundice Pain in female genitalia on intercourse Tobacco abuse Home Medications venlafaxine 150 mg capsule,extended release 24 hr 150 mg PO DAILY #90 caps 07/21/22 [Rx Last Taken Unknown] venlafaxine 75 mg capsule,extended release 24 hr 75 mg PO QAM #90 caps 07/21/22 [Rx Last Taken Unknown] triamcinolone acetonide 0.1 % topical cream 1 applic topical 08/22/22 [History Last Taken Unknown] Allergy/AdvReac Type Severity Reaction Status Date / Time ibuprofen Allergy Severe Hives Verified 09/10/22 15:00 acetaminophen [From Tylenol] AdvReac Other Verified 09/10/22 15:00 Family History Grandfather Cancer lung Diabetes Unknown Diabetes Father Hypertension Surgical History H/O tubal ligation History of 2 sections Social History Smoking Status: Current every day smoker tobacco type: cigarettes Tobacco: How many years used: 10 Electronic Cigarette Use: with nicotine alcohol intake: former year quit: 2017 substance use type: does not use caffeine: Yes what type of physical activity do you participate in: none seatbelt use: always do you feel safe at home: Yes additional social history: single- works at [employer] ROS ED Constitutional Constitutional ED: Denies chills or fever(s) Eyes Eyes: Denies blurry vision or change in vision ENT ENT ED: Denies rhinorrhea or sore throat Cardiovascular Cardiovascular: Denies chest pain or palpitations Respiratory/Chest Respiratory/Chest: Denies cough or dyspnea Gastrointestinal Gastrointestinal: Denies nausea or vomiting Genitourinary Genitourinary ED: Denies dysuria or hematuria Musculoskeletal Musculoskeletal: Reports neck pain; Denies back pain Integumentary Denies abscess or rash Neurologic Neurologic: Reports headache(s); Denies weakness Allergic/Immunologic Allergic/Immunologic ED: Denies mouth swelling or urticaria EXAM Physical Exam Const Vital Signs: 09/10/22 15:00 Temperature 97.4 F L Temperature Source Temporal Pulse Rate 84 Respiratory Rate 14 Blood Pressure 119/85 H Blood Pressure Mean 96 Pulse Ox 97 Oxygen Delivery Method Room Air Positive well nourished and well developed General Appearance ED: well developed and NAD HEENT Reports moist mucous membranes HEENT Narrative: There is tenderness over the occiput. There is no bony crepitance or step-off. There is no edema noted. There is no hematoma noted tenderness Neck supple and no JVD Neck Narrative: There is tenderness over the upper cervical spine and paraspinal muscles. There is no bony crepitance or step-off. There is no edema or ecchymosis. General: tenderness Extremity normal to inspection General Extremety ED: Negative for edema or tenderness General Extremity: Negative for edema Neuro oriented x3, CN's II-XII intact bilaterally and no sensory deficits noted Sensorium / Orientation: alert Motor Exam: strength 5/5 throughout Psych mental status grossly normal Skin no rashes or lesions noted MDM MDM MDM Narrative Medical decision making narrative: CT scan of the brain was obtained. There is no acute intracranial abnormality. This was interpreted by the radiologist and reviewed by myself. CT scan of the cervical spine was obtained. There is no acute fracture or spondylolisthesis. There is straightening of the normal cervical lordosis suggesting muscle strain. This was interpreted by the radiologist and reviewed by myself. Patient was advised of her findings. Patient was given head injury instructions. Patient was instructed to follow-up with her primary care physician in 5 to 7 days. Patient understood and was agreeable with the plan. All questions were answered. Radiography Diagnostic Testing: Clinical Impression(s) from Imaging Studies Brain CT 09/10/22 15:43 IMPRESSION: There are no acute intracranial findings. Electronically Signed: Michael Li MD at 16:23 EDT , Cervical Spine CT 09/10/22 15:43 IMPRESSION: (NOT LISTED IN ORDER OF SIGNIFICANCE) There is altered curvature of the normal cervical lordosis. This can suggest neck strain. Electronically Signed: Michael Li MD at 16:11 EDT , Discharge Plan Triage Chief Complaint: Fall ED Provider: Tom Carmichael Dx/Rx/DC Orders Clinical Impression: Closed head injury, Acute cervical myofascial strain Instructions: ED Head Injury (Adult), ED Neck Sprain or Strain Prescriptions: No Action triamcinolone acetonide 0.1 % cream 1 applic topical Label Comments: apply 1 APPLICATION to affected area twice a day for 7 days apply... (REFER TO PRESCRIPTION NOTES). venlafaxine 150 mg capsule,extended release 24hr 150 mg PO DAILY Qty: 90 3RF venlafaxine 75 mg capsule,extended release 24hr 75 mg PO QAM Qty: 90 2RF Rx Instructions: Take with 150 mg for a total daily dose of 225 mg Stand Alone Forms: ED Work / School Excuse Primary Care Provider: Rayo Gonzalez Referrals: Rayo Gonzalez MD [Primary Care Provider] - 5-7 Days Disposition Disposition: Home, Self Care
--- NOTE | 2022-09-10 15:43 | CT_ITS ---
STUDY: CT BRAIN WITHOUT CONTRAST REASON FOR EXAM: Female, 36 years old. Injury/Pain TECHNIQUE: Transaxial CT imaging of the brain was performed without administration of intravenous contrast material. Individualized dose optimization techniques were used for this CT. COMPARISON: None FINDINGS: Normal calvarium. Normal soft tissues. Normal size ventricles and extra-axial spaces for the patient''s age. Normal white matter tracts of the cerebral hemispheres. Normal basal ganglia and thalami. Normal brainstem. Normal cerebellum. There is no intracranial hemorrhage. There are no findings of an acute ischemic infarction. Normal visualized paranasal sinuses. ASPECTS 10 CT/Brain/Head without Contrast IMPRESSION: There are no acute intracranial findings. Electronically Signed: Michael Li MD at 16:23 EDT ,
--- NOTE | 2022-09-10 15:43 | CT_ITS ---
STUDY: CT Spine Cervical W/O Contrast Injection 09/10/2022 4:11 PM REASON FOR EXAM: Female, 36 years old. NECK PAIN Injury/Pain HISTORY: NECK PAIN Injury/Pain TECHNIQUE: High resolution transaxial imaging was performed without intravenous administration of contrast material. Sagittal and coronal images were reconstructed. Individualized dose optimization techniques were used for this CT. COMPARISON: None FINDINGS: Normal craniovertebral junction. Normal anterior atlantoaxial articulation. Normal odontoid process. There is straightening of the normal cervical lordosis. Normal vertebral bodies and posterior osseous elements. C2-3: Normal endplates. Normal disc height and morphology. Normal central canal and intervertebral neuroforamina. C3-4: Normal endplates. Normal disc height and morphology. Normal central canal and intervertebral neuroforamina. C4-5: Normal endplates. Normal disc height and morphology. Normal central canal and intervertebral neuroforamina. C5-6: Normal endplates. Normal disc height and morphology. Normal central canal and intervertebral neuroforamina. C6-7: Normal endplates. Normal disc height and morphology. Normal central canal and intervertebral neuroforamina. C7-T1: Normal endplates. Normal disc height and morphology. Normal central canal and intervertebral neuroforamina. Normal visualized soft tissue structures. CT/Spine Cervical without Contras IMPRESSION: (NOT LISTED IN ORDER OF SIGNIFICANCE) There is altered curvature of the normal cervical lordosis. This can suggest neck strain. Electronically Signed: Michael Li MD at 16:11 EDT ,
== END 2022-09-10 16:59 | disposition home or self-care (01) ==
PROVIDERS: Emergency Provider Emergency Medicine; PCP Internal Medicine; Visit Provider Emergency Medicine
DX: S09.90XA Unspecified injury of head, initial encounter (principal); S16.1XXA Strain of muscle, fascia and tendon at neck level, initial encounter; F17.210 Nicotine dependence, cigarettes, uncomplicated; F17.290 Nicotine dependence, other tobacco product, uncomplicated; W10.9XXA Fall (on) (from) unspecified stairs and steps, initial encounter
CPT/HCPCS: 70450; 72125; 99282

== ENCOUNTER 2022-09-18 05:23 | Emergency (ER) | payer MEDICAID, SELFPAY ==
[2022-09-18 05:23] VITALS: BP 136/97; PULSE 97; RESP 26; TEMP 37.1; O2SAT 100; BMI 27.6
--- NOTE | 2022-09-18 05:32 | EKG12_ITS ---
Test Reason : CP Blood Pressure : / mmHG Vent. Rate : 092 BPM Atrial Rate : 092 BPM P-R Int : 138 ms QRS Dur : 074 ms QT Int : 352 ms P-R-T Axes : 076 059 067 degrees QTc Int : 435 ms Normal sinus rhythm Nonspecific ST abnormality Abnormal ECG Confirmed by CHRISTI COLLADO, REY ([id number]), supervising editor news reel GANGA DELA CRUZ ([id number]) on 09/20/2022 8:30:33 AM Referred By: ALPHONSO Confirmed By:REY BARRAZA MD
--- NOTE | 2022-09-18 05:32 | ED.VIS.CHEST ---
HPI History of Present Illness Chief Complaint: Chest Pain Informant: patient Onset/Context/Timing Onset: Days (Several) Activity at onset: gradual Timing: Continuous Quality: Positive for Aching and Sharp Location: Right Chest (Lower ribs) Current Severity: Severe Maximum Severity: Severe Worsened By: Movement of Torso, Breathing and Coughing; Not Worsened By Exertion Relieved By: Remaining Still Associated Symptoms: Positive for Dyspnea (Due to pain) and Cough; Negative for Nausea, Vomiting, Diaphoresis, Fever, Lightheadedness or Palpitations Narrative Narrative: Patient presenting with cough nonproductive for several days, gradually her right lower chest has been hurting since she has been coughing so much. Now it is severe. It hurts so much to move and to take deep breaths as well as coughing. She has not done a home COVID test. She denies any myalgias now but she did have them. No fevers or chills. Denies any vomiting or diarrhea. She did have at least 1 COVID-vaccine. PFSH [facility] Medical History Bipolar 1 disorder Chest pain Depression Dermatitis Dyspareunia Hx of jaundice Pain in female genitalia on intercourse Tobacco abuse Home Medications venlafaxine 150 mg capsule,extended release 24 hr 150 mg PO DAILY #90 caps 07/21/22 [Rx Last Taken Unknown] venlafaxine 75 mg capsule,extended release 24 hr 75 mg PO QAM #90 caps 07/21/22 [Rx Last Taken Unknown] triamcinolone acetonide 0.1 % topical cream 1 applic topical 08/22/22 [History Last Taken Unknown] Allergy/AdvReac Type Severity Reaction Status Date / Time ibuprofen Allergy Severe Hives Verified 09/18/22 05:28 acetaminophen [From Tylenol] AdvReac Other Verified 09/18/22 05:28 Family History Grandfather Cancer lung Diabetes Unknown Diabetes Father Hypertension Surgical History H/O tubal ligation History of 2 sections Social History Smoking Status: Current every day smoker tobacco type: cigarettes Tobacco: How many years used: 10 Electronic Cigarette Use: with nicotine alcohol intake: former year quit: 2017 substance use type: does not use caffeine: Yes what type of physical activity do you participate in: none seatbelt use: always do you feel safe at home: Yes additional social history: single- works at [employer] ROS ED Constitutional Constitutional ED: Reports body ache(s); Denies chills or fever(s) Eyes Eyes: Denies change in vision or diplopia ENT ENT ED: Denies rhinorrhea or sore throat Cardiovascular Cardiovascular: Reports as per HPI and chest pain; Denies palpitations Respiratory/Chest Respiratory/Chest: Reports as per HPI, cough and dyspnea; Denies productive cough or sputum Gastrointestinal Gastrointestinal: Denies abdominal pain, diarrhea, nausea or vomiting Genitourinary Genitourinary ED: Denies dysuria or hematuria Musculoskeletal Musculoskeletal: Denies back pain or neck pain Integumentary Denies abscess or rash Neurologic Neurologic: Denies headache(s), paresthesias or weakness Psychiatric Psychiatric: Denies anxiety or suicidal thoughts EXAM Physical Exam Const Vital Signs: 09/18/22 05:23 09/18/22 05:23 Temperature 98.8 F Temperature Source Temporal Pulse Rate 97 Respiratory Rate 26 H Respiratory Effort Short of Breath Blood Pressure 136/97 H Blood Pressure Mean 110 Pulse Ox 100 Oxygen Delivery Method Room Air Positive well nourished and well developed General Appearance ED: well developed and NAD HEENT Reports moist mucous membranes normocephalic and atraumatic Eyes PERRL and EOMs intact bilaterally Neck full ROM and supple Chest Wall inspection of chest normal Chest Narrative: Tender right lower anterior rib cage, patient with drawling and crying in pain. No crepitance. No rash. No subcutaneous emphysema or flail or step-off. No tenderness laterally or superiorly or at the sternum. No subcostal abdominal tenderness. Chest: tenderness Resp normal respiratory effort and clear to auscultation bilaterally Cardio regular rate, regular rhythm and no murmurs GI non-tender and non-distended Auscultation: normoactive bowel sounds Palpation: soft Back/Spine no CVA tenderness General Back: other FROM Extremity normal to inspection General Extremety ED: Negative for edema, pulses abnormal or tenderness General Extremity: Negative for edema or pulses abnormal Neuro oriented x3, CN's II-XII intact bilaterally and no sensory deficits noted Sensorium / Orientation: awake and alert Motor Exam: strength 5/5 throughout Psych Psych Narrative: Patient extremely anxious. Just trying to sit up in bed she cries and states that she can do it but is able to with assistance. Skin no rashes or lesions noted and no wounds MDM MDM MDM Narrative Medical decision making narrative: Patient was given a injection of Toradol for her musculoskeletal chest discomfort. Her EKG is unremarkable, her chest x-ray is unremarkable. COVID is positive. She does not meet any criteria for antivirals, supportive care advised pulse ox 100% on room air. Patient did not have any adverse effects after the Toradol, and she was smiling laughing and well-appearing on reevaluation. Radiography Chest X-Ray - ED: 1 View, Read by ED Physician, Normal, No Acute Disease and No Infiltrates Rhythm Strip Rhythm Strip: Sinus Rhythm Rate: 90 Ectopy: None EKG Initial EKG: Attestation: I personally reviewed and interpreted this EKG as follows: Interpretation: Sinus Rhythm and No Acute Injury Pattern Discharge Plan Triage Chief Complaint: Chest Pain ED Provider: Gabo Hawley Dx/Rx/DC Orders Clinical Impression: COVID-19, Strain of chest wall Instructions: Coronavirus Disease 2019 (COVID-19): Caring for Yourself or Others Prescriptions: No Action triamcinolone acetonide 0.1 % cream 1 applic topical Label Comments: apply 1 APPLICATION to affected area twice a day for 7 days apply... (REFER TO PRESCRIPTION NOTES). venlafaxine 150 mg capsule,extended release 24hr 150 mg PO DAILY Qty: 90 3RF venlafaxine 75 mg capsule,extended release 24hr 75 mg PO QAM Qty: 90 2RF Rx Instructions: Take with 150 mg for a total daily dose of 225 mg Primary Care Provider: Rayo Gonzalez Referrals: Rayo Gonzalez MD [Primary Care Provider] - 1 Week if not improving Activity Restrictions/Additional Instructions: Try to get a home portable pulse oximeter and closely watch your oxygen levels periodically. If you stay below 90% for more than a minute or so, and/or you are feeling like your breathing is getting worse, return to the emergency department for further evaluation. Currently, CDC recommendations state that you should stay home through day 5 of symptoms, then as long as symptoms are improving, if you need to go to work or somewhere else you may for days 6-10 as long as you are wearing a mask the entire time. If you are feeling better after day 10 you may resume life is normal. Disposition Disposition: Home, Self Care
[2022-09-18] MEDS: Ketorolac 30 MG/ML Syringe IM (05:38)
--- NOTE | 2022-09-18 05:55 | RAD_ITS ---
INDICATION: cough EXAMINATION/TECHNIQUE: X-RAY - XR Chest 1 View COMPARISON: September 30, 2021. FINDINGS: LINES/DEVICES: None. LUNGS: No consolidation, edema or effusion. No pneumothorax. MEDIASTINUM AND CARDIOVASCULAR STRUCTURES: Cardiac silhouette not enlarged. BONES AND SOFT TISSUES: Unremarkable. RAD/Chest 1 View (Portable) IMPRESSION: No radiographic evidence of acute cardiopulmonary disease. Electronically Signed: Claude Matute MD at 6:40 EDT ,
[2022-09-18 06:25] VITALS: O2SAT 97; O2SAT 98
== END 2022-09-18 06:25 | disposition home or self-care (01) ==
PROVIDERS: Emergency Provider Emergency Medicine; PCP Internal Medicine; Visit Provider Emergency Medicine
DX: U07.1 COVID-19 (principal); S29.011A Strain of muscle and tendon of front wall of thorax, initial encounter; F17.210 Nicotine dependence, cigarettes, uncomplicated; R06.00 Dyspnea, unspecified; R07.9 Chest pain, unspecified; X58.XXXA Exposure to other specified factors, initial encounter
CPT/HCPCS: 71045; 87811; 93005; 96372; 99282; A4216

== ENCOUNTER 2022-12-09 18:08 | Emergency (ER) | payer MEDICAID, SELFPAY ==
[2022-12-09 18:09] VITALS: BP 111/75; PULSE 110; RESP 16; TEMP 36.6; O2SAT 98; BMI 25.4
--- NOTE | 2022-12-09 18:49 | ED.RN ---
pt does not want to wait to be seen. would like to go to another emergency room.
== END 2022-12-09 18:50 | disposition left against medical advice (07) ==
LOC: ED 18:51
PROVIDERS: PCP Internal Medicine
DX: Z53.21 Procedure and treatment not carried out due to patient leaving prior to being seen by health care provider (principal)

== ENCOUNTER → 2023-01-16 | Outpatient (CLI) | payer MEDICAID, SELFPAY ==
[2023-01-24 15:16] LABS: HPV APTIMA, High Risk Negative (Negative)
== END | disposition home or self-care (01) ==
PROVIDERS: PCP Internal Medicine; Visit Provider Nurse Practitioner Women's Health
DX: Z12.4 Encounter for screening for malignant neoplasm of cervix (principal)
CPT/HCPCS: 87070; 87205; 87624; 88175; G0145

== ENCOUNTER → 2023-01-31 | Outpatient (CLI) | payer MEDICAID, SELFPAY ==
--- NOTE | 2023-01-31 15:06 | US_ITS ---
STUDY: ULTRASOUND OF THE FEMALE PELVIS - LIMITED REASON FOR EXAM: Female, 37 years old . Abnormal uterine bleeding. TECHNIQUE: Transabdominal and Transvaginal TECHNICAL QUALITY: Adequate. COMPARISON: None. FINDINGS: The uterus is anteverted and is in a midline position. The uterus measures 9 x 4.9 x 4.1 cm. There is a Nabothian cyst of the cervix. The endometrium measures 9.9 mm in thickness, and is hyperechoic. There is no demonstrated endometrial mass. There is a 1.3 cm x 1.2 cm x 0.8 cm uterine fibroid. The right ovary measures 2.1 cm x 1.4 cm x 1.3 cm. There is no right ovarian cyst or ovarian mass. There is no visualized right adnexal mass or complex lesion. There is normal arterial and normal venous vascularity. The left ovary measures 2.3 cm x 2.1 cm x 1.5 cm. There is no left ovarian cyst or ovarian mass. There is no visualized left adnexal mass or complex lesion. There is normal arterial and normal venous vascularity. There is no fluid in the cul-de-sac. US/Transvaginal Non- IMPRESSION: Small uterine fibroid measuring 1.3 cm x 1.2 cm x 0.8 cm Electronically Signed: Forest Gallegos MD at 15:16 EST ,
--- NOTE | 2023-01-31 15:06 | US_ITS ---
STUDY: ULTRASOUND OF THE FEMALE PELVIS - LIMITED REASON FOR EXAM: Female, 37 years old . Abnormal uterine bleeding. TECHNIQUE: Transabdominal and Transvaginal TECHNICAL QUALITY: Adequate. COMPARISON: None. FINDINGS: The uterus is anteverted and is in a midline position. The uterus measures 9 x 4.9 x 4.1 cm. There is a Nabothian cyst of the cervix. The endometrium measures 9.9 mm in thickness, and is hyperechoic. There is no demonstrated endometrial mass. There is a 1.3 cm x 1.2 cm x 0.8 cm uterine fibroid. The right ovary measures 2.1 cm x 1.4 cm x 1.3 cm. There is no right ovarian cyst or ovarian mass. There is no visualized right adnexal mass or complex lesion. There is normal arterial and normal venous vascularity. The left ovary measures 2.3 cm x 2.1 cm x 1.5 cm. There is no left ovarian cyst or ovarian mass. There is no visualized left adnexal mass or complex lesion. There is normal arterial and normal venous vascularity. There is no fluid in the cul-de-sac. US/Pelvic (Non ) IMPRESSION: Small uterine fibroid measuring 1.3 cm x 1.2 cm x 0.8 cm Electronically Signed: Forest Gallegos MD at 15:16 EST ,
== END | disposition home or self-care (01) ==
LOC: US 15:07
PROVIDERS: PCP Internal Medicine; Referring Provider Nurse Practitioner Women's Health; Visit Provider Nurse Practitioner Women's Health
DX: N92.1 Excessive and frequent menstruation with irregular cycle (principal)
CPT/HCPCS: 76830; 76856

== ENCOUNTER → 2023-06-04 | Outpatient (CLI) | payer MEDICAID, SELFPAY ==
[2023-06-04 15:40] LABS: Absolute Lymphocyte Count 1.54 X10^3/uL (0.83-4.51); Absolute Neutrophil Count 3.6 X10^3/uL (2.0-7.7); Basophil# 0.03 X10^3/uL; Basophil% 0.5 % (0-1); Hematocrit 40.9 % (37-47); Hemoglobin 12.8 g/dL (12.0-15.0); Lymphocyte # 1.54 X10^3/ul (0.83-4.51); Lymphocyte % 26.9 % (19-41); Mean Corp Hgb Conc 31.3 g/dL (32-36); Mean Corpuscular Volume 89.5 fL (81-99); Mean Platelet Vol. 9.4 fl (6.2-12.0); Monocyte# 0.55 X10^3/uL; Monocyte% 9.6 % (0-10); NRBC Flagged by Analyzer 0 % (0-5); Neutrophil # 3.58 X10^3/uL (2.7-7.7); Neutrophil % 62.7 % (47-70); Platelet Count 275 K/mm3 (150-450); RBC Distribution Width CV 13.3 % (11.6-14.6); RBC Distribution Width SD 43.7 fl (35.1-43.9); Red Blood Count 4.57 M/mm3 (4.2-5.4); White Blood Count 5.7 K/mm3 (4.4-11.0)
== END | disposition home or self-care (01) ==
LOC: BIMLAB 13:56
PROVIDERS: PCP Internal Medicine; Referring Provider Internal Medicine; Visit Provider Internal Medicine
DX: F41.9 Anxiety disorder, unspecified (principal); F32.9 Major depressive disorder, single episode, unspecified
CPT/HCPCS: 36415; 85025